=== PATIENT | female | born 1940 | race Caucasian/White ===

== ENCOUNTER → 2023-11-16 09:33 | Outpatient (REF) | payer OTHER, MEDICARE, SELFPAY ==
[2023-11-16 10:35] LABS: % Basophils 0.9 % (0-2); % Eosinophils 5.6 % (0-6); % Immature Granulocytes 0.4 % (0-0.5); % Monocytes 14.3 % (1.7-9.3); % Neutrophils 45.8 % (42.2-75.2); Absolute Eosinophils 0.3 10^3/uL (0-0.7); Absolute Lymphocytes 1.5 10^3/uL (1.2-3.4); Absolute Monocytes 0.6 10^3/uL (0.1-0.6); Absolute Neutrophils 2.1 10^3/uL (1.4-6.5); Hematocrit 31.9 % (37.0-47.0); Hemoglobin 10.2 g/dL (12.0-16.0); Mean Corpuscular Volume 90.6 fL (81.0-99.0); Mean Platelet Volume 10.1 fL (7.4-10.4); Nucleated Red Blood Cells % 0 %; Platelet Count 232 10^3/uL (130-400); Red Blood Cell Count 3.52 10^6/uL (4.20-5.40); Red Cell Dist. Width 14.7 % (11.5-14.5); White Blood Cell Count 4.5 10^3/uL (4.8-10.8)
[2023-11-16 10:50] LABS: ALT (SGPT) 11 U/L (0-35); AST (SGOT) 23 U/L (14-36); Albumin 3.2 g/dl (3.5-5.0); Alkaline Phosphatase 109 U/L (38-126); Blood Urea Nitrogen 23 mg/dl (7-17); Carbon Dioxide 27 mmol/L (22-30); Chloride 106 mmol/L (98-107); Glucose 87 mg/dl (70-99); HDL Cholesterol 65 mg/dl; LDL Cholesterol, Calculated 41 mg/dl; Magnesium 2.1 mg/dl (1.6-2.3); Potassium 4.4 mmol/L (3.5-5.1); Sodium 134 mmol/L (135-145); Total Bilirubin 0.5 mg/dl (0.2-1.3); Total Cholesterol 133 mg/dl (50-199); Total Protein 5.7 g/dl (6.3-8.2); Triglyceride 136 mg/dl (10-149); Very Low Density Lipoprotein 27 mg/dl (0-30); eGFR > 60.00
== END ==
LOC: OLABN 09:33
PROVIDERS: ATTENDING PHYSICIAN Student in an Organized Health Care Education/Training Program
DX: R60.0 Localized edema (principal); I10 Essential (primary) hypertension; D68.59 Other primary thrombophilia; N18.2 Chronic kidney disease, stage 2 (mild); E03.9 Hypothyroidism, unspecified; I48.0 Paroxysmal atrial fibrillation
CPT/HCPCS: 36415; 80053; 80061; 83735; 84443; 85025

== ENCOUNTER → 2023-12-01 09:30 | Outpatient (REF) | payer OTHER, MEDICARE, SELFPAY ==
[2023-12-01 11:54] LABS: TSH 9.49 uIU/ml (0.47-4.68)
== END ==
LOC: OLABN 09:30
PROVIDERS: ATTENDING PHYSICIAN Student in an Organized Health Care Education/Training Program
DX: E03.9 Hypothyroidism, unspecified (principal)
CPT/HCPCS: 36415; 84439; 84443

== ENCOUNTER → 2024-01-04 11:34 | Outpatient (REF) | payer MEDICARE, OTHER, SELFPAY ==
[2024-01-04 12:59] LABS: Free T4 1.67 ng/dl (0.78-2.19)
[2024-01-04 13:13] LABS: TSH 0.41 uIU/ml (0.47-4.68)
== END ==
LOC: OLABN 11:34
PROVIDERS: ATTENDING PHYSICIAN Student in an Organized Health Care Education/Training Program
DX: E03.9 Hypothyroidism, unspecified (principal)
CPT/HCPCS: 36415; 84439; 84443

== ENCOUNTER → 2024-01-19 11:15 | Outpatient (REF) | payer MEDICARE, OTHER, SELFPAY ==
[2024-01-19 12:26] LABS: Free T4 1.44 ng/dl (0.78-2.19)
[2024-01-19 12:40] LABS: TSH 1.47 uIU/ml (0.47-4.68)
== END ==
LOC: OLABN 11:15
PROVIDERS: ATTENDING PHYSICIAN Student in an Organized Health Care Education/Training Program
DX: E03.9 Hypothyroidism, unspecified (principal)
CPT/HCPCS: 36415; 84439; 84443

== ENCOUNTER 2024-03-23 20:15 | Inpatient (IN) | payer MEDICARE, OTHER, SELFPAY ==
[2024-03-23] VITALS (7 sets, daily range): BP systolic 109–156; BP diastolic 43–97; BMI 23.5
--- NOTE | 2024-03-23 15:45 | ED.GENMED ---
History of Present Illness
General
Chief Complaint: Weakness
Source: patient and ambulance crew
Exam Limitations: dementia
Time Seen by Provider: 03/23/24 15:17
History of Present Illness
History of Present Illness:
Patient is an 83-year-old female from [facility] who was sent from detention for increased weakness change in mental status. It is documented the patient did not eat today and has had nausea and gagging with dry heaves some diarrhea.
Apparently patient was transferring to the toilet became weak and fell on the floor which was witnessed and apparently staff lowered her to the supine position. Patient presents awake alert she answers certain questions but is confused. She has
obvious ecchymosis to her head abrasions and left shoulder.
Review of Systems
Review of Systems
Allergies reviewed?: Yes
All Other Systems: ROS reviewed and negative except as documented in HPI and ROS
Constitutional: Reports fatigue
EENT: Reports no symptoms
Respiratory: Reports no symptoms
ABD/GI: Reports nausea, diarrhea and other (Nausea dry heaves as per detention sheet)
: Reports no symptoms
Musculoskeletal: Reports no symptoms
Skin: Reports no symptoms
Neurological: Reports no symptoms
Hematologic/Lymphatic: Reports no symptoms
Psychiatric: Reports no symptoms
Phy Exam
General Physical Exam
General Presentation: no apparent distress
General age: appears stated age
General Skin: warm and dry
General Habitus: elderly
General Mental: alert
General Hydration: appears well hydrated
Cardiovascular Exam
Cardiovascular Exam: regular rate/rhythm, no murmur and normal peripheral pulses
Pulmonary Exam
Pulmonary Exam: lungs clear and no respiratory distress
Neurological Exam
Neurological Exam: alert and oriented x3
Musculoskeletal Exam
Musculoskeletal Exam: full ROM and other (Patient with bruising to left anterior forehead abrasion to left shoulder right shoulder mildly sore with abduction)
Skin Exam
Skin Exam: normal color and warm/dry
Psychiatric Exam
Psychiatric Exam: normal mood/affect
Course
Orders/Labs/Results
Orders:
Orders
03/23/24 15:23
COVID-19 Antigen Urgent
Source: Nasal Swab
Complete Blood Count/With Diff Urgent
Comprehensive Metabolic Panel Urgent
Urinalysis Reflex To Culture Urgent
Date Specimen was Collected: 03/23/24
Time Specimen was Collected: 15:17
Urine Microscopic Reflex Cult Urgent
Urine Culture Urgent
RUDDY Source: U
Specimen Description:
Date Specimen was Collected: 03/23/24
Time Specimen was Collected: 15:17
03/23/24 15:44
CT Head W/o Iv Contrast Urgent
Comment:
Reason For Exam: fall
Shoulder, Left, Trauma CR [CR Shoulder, Trauma - Left] Urgent
Comment:
Reason For Exam: trauma
Shoulder, Right, Trauma [CR Shoulder, Trauma - Right] Urgent
Comment:
Reason For Exam: trauma
03/23/24 15:49
Straight cath- Treatment ONCE
03/23/24 16:03
0.9% Sodium Chloride 500 ml [Nss] 500 ml IV BOLUS
03/23/24 16:58
Chest [CR Chest - 2 Views ] Urgent
Comment:
Reason For Exam: weakness
03/23/24 18:28
PT/INR [Prothrombin Time] Urgent
03/23/24 19:14
Lactic Acid Urgent
CefTRIAXone [Rocephin] 1,000 mg IV NOW STA
Abnormal Lab Results
03/23/24 03/23/24
15:23 18:28
WBC 16.4 H 10^3/uL
(4.8-10.8)
RBC 4.09 L 10^6/uL
(4.20-5.40)
Hgb 10.8 L g/dL
(12.0-16.0)
Hct 32.7 L %
(37.0-47.0)
MCV 80.0 L fL
(81.0-99.0)
MCH 26.4 L pg
(27.0-31.0)
RDW 17.9 H %
(11.5-14.5)
Abs Immat Gran (auto) 0.2 H 10^3/uL
(0-0.05)
Absolute Neuts (auto) 14.4 H 10^3/uL
(1.4-6.5)
Absolute Lymphs (auto) 0.7 L 10^3/uL
(1.2-3.4)
Absolute Monos (auto) 0.9 H 10^3/uL
(0.1-0.6)
Immature Gran % 1.2 H %
(0-0.5)
Neutrophils % 87.7 H %
(42.2-75.2)
Lymphocytes % 4.4 L %
(20.5-51.1)
PT 35.3 H Sec
(11.4-14.6)
Sodium 131 L mmol/L
(135-145)
BUN 42 H mg/dl
(7-17)
Creatinine 2.0 H mg/dL
(0.6-1.0)
Glucose 109 H mg/dl
(70-99)
Total Bilirubin 1.9 H mg/dl
(0.2-1.3)
Alkaline Phosphatase 127 H U/L
(38-126)
Ur Occult Blood Reflex 4+ A
(Negative)
Leukocyte Esterase Rfl 2+ A
(Negative)
Urine RBC 3-6 A /HPF
(0-2)
Urine WBC (Reflex) 70-80 A /HPF
(0-5)
Urine Bacteria (Reflex) Many A
(Negative)
Urine Albumin (Reflex) 1+ A
(Neg - Trace)
03/23/24 15:23
03/23/24 15:23
Vital Signs
Initial and Last Documented VS:
Initial Vital Signs
Pulse Resp
70 35
03/23/24 15:17 03/23/24 15:17
Last Documented Vital Signs
Temp Pulse Resp BP Pulse Ox
97.5 F 71 31 137/74 99
03/23/24 18:17 03/23/24 19:00 03/23/24 19:00 03/23/24 19:00 03/23/24 18:17
MDM/Problems Addressed
Differential Diagnosis Includes:
Not limited to weakness, intracranial hemorrhage, UTI, dehydration
MDM/Problems Addressed:
Patient is an 83-year-old female sent by detention for weakness, fall. Patient arrives awake alert minimally confused. Patient has a history of frequent UTIs as per family at bedside. Patient has small amount of bruising to left forehead she
is on Coumadin INR is 3.46. CT head done negative. Patient has some abrasions to shoulders shoulder x-ray negative. Patient with minimally elevated white count at 16,000 creatinine bumped up to 2 which is new from October 2023 urine done straight
cath positive UTI will admit for weakness UTI dehydration renal insufficiency
*Radiology
Radiology exam reviewed: radiology read reviewed
*Pulse Oximetry
Patient hypoxic: no
*Critical Care Note
Total Time (30-74mins, 75-104mins- exclusive of procedures): Not Applicable
ED Attending Note
-
Portions of this chart may have been created with voice recognition software.� Occasional wrong word or��sound alike� substitutions may have occurred due to the inherent limitations of voice recognition software.
Discharge Plan
Departure
Patient Disposition: Admit
Date of Disposition: 03/23/24
Time of Disposition: 19:21
Admit to doctor: hospitalist
Presentation/result/management discussed w/ accepting MD/DO: Hospitalist
Patient with high blood pressure during this ER visit?: Yes
Condition: Fair
Covid-19: Negative COVID-19
Discharge Problem:
Acute UTI, Weakness, Acute renal insufficiency
Prescriptions:
No Action
lidocaine 4 % Adhesive Patch,Medicated
1 patch TOPICAL DAILY
cetirizine 5 mg Tablet
5 mg PO DAILY@2029
sotalol 80 mg Tablet
40 mg PO DAILY
warfarin [Jantoven] 2.5 mg Tablet
2.5 mg PO DAILY@1829
Patient Comments:
03/23/24: dosage for 03/17/24-03/24/24
levothyroxine 150 mcg Tablet
150 mcg PO DAILY
losartan 25 mg Tablet
25 mg PO DAILY@1829
furosemide 20 mg Tablet
20 mg PO DAILY
fluticasone propion-salmeterol [Wixela Inhub] 100-50 mcg/dose Blister With Device
1 inh INHALATION R BID
Spiriva Respimat 2.5 mcg/actuation Mist
2 puff INHALATION R DAILY
PreserVision AREDS-2 250-90-40-1 mg Capsule
1 tab PO BID
carboxymethylcellulose sodium 1 % Drops
1 drp RIGHT EYE BID
acetaminophen 325 mg Tablet
650 mg PO Q4HPRN MDD 3000 mg PRN (Reason: mild pain/fever >100.4)
albuterol sulfate 2.5 mg /3 mL (0.083 %) Solution For Nebulization
2.5 mg INHALATION R Q4HPRN PRN (Reason: SOB)
magnesium hydroxide [Milk of Magnesia] 400 mg/5 mL Suspension
30 ml PO HSPRN PRN (Reason: consipation)
benzonatate 100 mg Capsule
100 mg PO Q8HPRN PRN (Reason: cough)
bisacodyl 10 mg Suppository
10 mg [place] DAILYPRN PRN (Reason: day 3 no bm, mom ineffective)
sennosides-docusate sodium 8.6-50 mg Tablet
2 tab-cap PO DAILY
dextromethorphan-guaifenesin 20-200 mg/10 mL Liquid In Packet
10 ml PO Q6HPRN PRN (Reason: cough)
Referrals:
Josiah Rodriguez DO [Family Provider] -
Interventions
Interventions:
*Risk Screen - Suicide Last Done: 03/23/24 15:40
*General Assessment Last Done: 03/23/24 15:40
*Neglect/Abuse Screening Last Done: 03/23/24 15:40
ED- Fall Risk Assessment Last Done: 03/23/24 15:40
*ED COVID-19 Vaccine History Last Done: 03/23/24 15:40
ED- Cardiac Assessment Last Done: 03/23/24 15:40
ED- Neurological Assessment Last Done: 03/23/24 15:40
ED- Pulmonary Assessment Last Done: 03/23/24 15:40
Discharge Date and Time
Print Language: GEORGIAN
[2024-03-23 15:46] LABS: % Basophils 0.5 % (0-2); % Eosinophils 0.7 % (0-6); % Immature Granulocytes 1.2 % (0-0.5); % Lymphocytes 4.4 % (20.5-51.1); % Monocytes 5.5 % (1.7-9.3); % Neutrophils 87.7 % (42.2-75.2); Absolute Basophils 0.1 10^3/uL (0-0.2); Absolute Eosinophils 0.1 10^3/uL (0-0.7); Absolute Immature Granulocytes 0.2 10^3/uL (0-0.05); Absolute Lymphocytes 0.7 10^3/uL (1.2-3.4); Absolute Monocytes 0.9 10^3/uL (0.1-0.6); Absolute Neutrophils 14.4 10^3/uL (1.4-6.5); Hematocrit 32.7 % (37.0-47.0); Hemoglobin 10.8 g/dL (12.0-16.0); Mean Corpuscular Hgb 26.4 pg (27.0-31.0); Mean Platelet Volume 10.2 fL (7.4-10.4); Nucleated Red Blood Cells % 0 %; Platelet Count 189 10^3/uL (130-400); Red Blood Cell Count 4.09 10^6/uL (4.20-5.40); Red Cell Dist. Width 17.9 % (11.5-14.5); White Blood Cell Count 16.4 10^3/uL (4.8-10.8)
[2024-03-23 15:49] LABS: COVID-19 Antigen Negative (Negative)
[2024-03-23 16:01] LABS: ALT (SGPT) 13 U/L (0-35); AST (SGOT) 28 U/L (14-36); Albumin 3.5 g/dl (3.5-5.0); Alkaline Phosphatase 127 U/L (38-126); Blood Urea Nitrogen 42 mg/dl (7-17); Calcium 8.7 mg/dl (8.4-10.2); Carbon Dioxide 24 mmol/L (22-30); Chloride 99 mmol/L (98-107); Glucose 109 mg/dl (70-99); Potassium 4.4 mmol/L (3.5-5.1); Sodium 131 mmol/L (135-145); Total Bilirubin 1.9 mg/dl (0.2-1.3); Total Protein 6.3 g/dl (6.3-8.2); eGFR 24.03
[2024-03-23 18:20] LABS: Urine Albumin 1+ (Neg - Trace); Urine Bilirubin Negative (Negative); Urine Character Slightly Cloudy (Clear); Urine Color Yellow; Urine Glucose Negative (Negative); Urine Ketone Negative (Negative); Urine Leukocyte 2+ (Negative); Urine Nitrite Negative (Negative); Urine Occult Blood 4+ (Negative); Urine Specific Gravity 1.015 (<1.030); Urine Urobilinogen Negative (Neg - 1+)
[2024-03-23] MEDS: NSS 500 IV (18:20)
[2024-03-23 18:45] LABS: INR 3.46; PT 35.3 Sec (11.4-14.6)
[2024-03-23 19:07] LABS: Urine Bacteria Many (Negative); Urine White Cell 70-80 /HPF (0-5)
[2024-03-23] MEDS: ROCEPHIN 1000 MG IV (19:26)
[2024-03-23 19:48] LABS: Lactic Acid 2.2 mmol/L (0.7-2.0)
--- NOTE | 2024-03-23 19:57 | HPS.HSE ---
Family Physician
-
Family Physician: Josiah Rodriguez,
Chief Complaint
-
weakness, confusion
History of Present Illness
83-year-old female past medical history of paroxysmal atrial fibrillation, with pacemaker, hypertension, anemia, COPD, breast cancer status post bilateral mastectomy, hypothyroidism, presenting from [facility] for increased weakness and change
in mental status. It was documented the patient did not eat today and has had nausea and gagging/dry heaving with some diarrhea over the past few days. No diarrhea today. Apparently while patient was transferring to the toilet she became weak and
fell onto the floor which was witnessed and apparently staff lowered her to the supine position. Patient is awake and alert and answers certain questions but is confused. She has ecchymosis on her head and left shoulder. No urinary symptoms. No
fevers or chills.
She has had cough for the past several weeks and was treated with steroids and nebulizers with improvement in cough although she still has slight cough. No shortness of breath. No chest pain.
She is a former smoker. Denies alcohol use.
Medical History
Past Medical History
Past Medical History: Reports Other (paroxysmal atrial fibrillation, with pacemaker, hypertension, anemia, COPD, breast cancer status post bilateral mastectomy, hypothyroidism)
Past Surgical History: Reports Other (bilteral mastectomy )
Social History
Tobacco: Former Smoker
Alcohol: Former
Drug: None
Family History
Family History: Not pertinent
Allergies / Home Medications
Allergies reflects when Allergies were last updated in [employer].
Home Medications with original date entered in [employer]
Allergy/Medication List:
Allergies
Allergy/AdvReac Type Severity Reaction Status Date / Time
ramipril Allergy Mild Rash Verified 03/23/24 16:11
Home Medications
acetaminophen 325 mg tablet 650 mg PO Q4HPRN PRN mild pain/fever >100.4 03/23/24
albuterol sulfate 2.5 mg/3 mL (0.083 %) solution for nebulization 2.5 mg inhalation R Q4HPRN PRN SOB 03/23/24
benzonatate 100 mg capsule 100 mg PO Q8HPRN PRN cough 03/23/24
bisacodyl 10 mg rectal suppository 10 mg [place] DAILYPRN PRN day 3 no bm, mom ineffective 03/23/24
carboxymethylcellulose sodium 1 % eye drops 1 drp RIGHT EYE BID 03/23/24
cetirizine 5 mg tablet 5 mg PO DAILY@202903/23/24
dextromethorphan-guaifenesin 20 mg-200 mg/10 mL oral liquid in packet 10 ml PO Q6HPRN PRN cough 03/23/24
fluticasone 100 mcg-salmeterol 50 mcg/dose blistr powdr for inhalation (Wixela Inhub) 1 inh inhalation R BID 03/23/24
furosemide 20 mg tablet 20 mg PO DAILY 03/23/24
levothyroxine 150 mcg tablet 150 mcg PO DAILY 03/23/24
lidocaine 4 % topical patch 1 patch topical DAILY right shoulder 03/23/24
losartan 25 mg tablet 25 mg PO DAILY@182903/23/24
magnesium hydroxide 400 mg/5 mL oral suspension (Milk of Magnesia) 30 ml PO HSPRN PRN consipation 03/23/24
sennosides 8.6 mg-docusate sodium 50 mg tablet 2 tab-cap PO DAILY 03/23/24
sotalol 80 mg tablet 40 mg PO DAILY 03/23/24
tiotropium bromide 2.5 mcg/actuation mist for inhalation (Spiriva Respimat) 2 puff inhalation R DAILY 03/23/24
vit C 250 mg-vit E 90 mg-zinc 40 mg-copper 1 [id number] capsule (PreserVision AREDS-2) 1 tab PO BID 03/23/24
warfarin 2.5 mg tablet (Jantoven) 2.5 mg PO DAILY@182903/23/24
Review of Systems
-
History Source: Patient
A 12 point ROS was completed and negative except as noted: Yes
Constitutional: Reports No Symptoms
EENT: Reports No Symptoms
Respiratory: Reports No Symptoms
Cardiac: Reports No Symptoms
Abdomen/GI: Reports See HPI
: Reports No Symptoms
Musculoskeletal: Reports No Symptoms
Skin: Reports No Symptoms
Neurological: Reports No Symptoms
Endocrine: Reports No Symptoms
Hematologic/Lymphatic: Reports No Symptoms
Psych: Reports No Symptoms
Physical Exam
Vital Signs
Vital Signs
Temp Pulse Resp BP Pulse Ox
97.5 F 71 31 137/74 99
03/23/24 18:17 03/23/24 19:00 03/23/24 19:00 03/23/24 19:00 03/23/24 18:17
Physical Exam
General: Well Developed, Well Nourished and No Apparent Distress
HEENT: NormoCephalic, Moist mucous membranes and Atraumatic
Respiratory: Clear
Cardiac: S1/S2 and Regular Rhythm; No Murmur or Rub
GI: Soft, Non Distended, Normal Bowel Sounds and Tender; No Organomegaly
Rectal: Deferred by Provider
Musculoskeletal: No Clubbing, No Cyanosis and No Edema
Skin: No Rash
Neuro: Nonfocal/grossly intact
Laboratory Results
-
03/23/24 15:23
03/23/24 15:23
Laboratory Results
PT 35.3 Sec (11.4-14.6) H 03/23/24 18:28
INR 3.46 03/23/24 18:28
Lactic Acid 2.2 mmol/L (0.7-2.0) H 03/23/24 19:32
Total Bilirubin 1.9 mg/dl (0.2-1.3) H 03/23/24 15:23
AST 28 U/L (14-36) 03/23/24 15:23
ALT 13 U/L (0-35) 03/23/24 15:23
Alkaline Phosphatase 127 U/L (38-126) H 03/23/24 15:23
Data Reviewed
-
Lab Data: Labs Reviewed by me
Old Records: Reviewed
Impression/Plan
-
IMPRESSION:
PLAN:
# Metabolic encephalopathy secondary to urinary tract infection
-UA shows 70-80 WBC,
-Urine culture
-Chest x-ray unremarkable, COVID-negative
-Ceftriaxone
# Acute kidney injury on reported CKD
-IV fluids
-Hold Lasix
-Hold losartan
# Forehead/shoulder ecchymoses from fall
-Shoulder x-rays negative
-CT head negative
# Diarrhea for past few days
-No diarrhea today
-Check stool studies if persistent
-Hold senna
Paroxysmal atrial fibrillation with pacemaker
-Continue Coumadin
-INR 3.46, check daily
-Continue sotalol
Chronic anemia
-Stable
COPD
-Continue inhalers
Chronic lower extremity edema
-Hold Lasix
Former smoker
Essential hypertension
-Hold losartan
Hypothyroidism
-Continue levothyroxine
Breast cancer status post bilateral mastectomy
DNR/DNI
DVT prophylaxis�Coumadin
Regular diet
[2024-03-23] MEDS: TYLENOL 650 MG PO (21:18)
[2024-03-23] MEDS: ZYRTEC 5 MG PO (23:30)
[2024-03-23] MEDS: REFRESH CELLUVISC GEL 1 DROPS RIGHT EYE (23:30)
[2024-03-23] MEDS: OCUVITE SOFTGEL 1 CAP PO (23:30)
[2024-03-23] MEDS: NSS 1000 IV (23:31)
[2024-03-23] MEDS: ADVAIR HFA 45/21 MCG INHALER INH (23:52)
[2024-03-24] VITALS (12 sets, daily range): BP systolic 97–149; BP diastolic 43–70; PULSE 70; BMI 23.9
[2024-03-24 03:53] LABS: Lactic Acid 1.1 mmol/L (0.7-2.0)
[2024-03-24 06:04] LABS: INR 3.72; PT 37.4 Sec (11.4-14.6)
[2024-03-24 06:21] LABS: Hematocrit 34.7 % (37.0-47.0); Hemoglobin 11.6 g/dL (12.0-16.0); Mean Corp Hgb Conc. 33.4 g/dL (33.0-37.0); Mean Corpuscular Hgb 26.5 pg (27.0-31.0); Mean Corpuscular Volume 79.2 fL (81.0-99.0); Mean Platelet Volume 10.2 fL (7.4-10.4); Platelet Count 163 10^3/uL (130-400); Red Blood Cell Count 4.38 10^6/uL (4.20-5.40); Red Cell Dist. Width 17.8 % (11.5-14.5); White Blood Cell Count 13.5 10^3/uL (4.8-10.8)
[2024-03-24 06:53] LABS: ALT (SGPT) 25 U/L (0-35); AST (SGOT) 43 U/L (14-36); Albumin 3.3 g/dl (3.5-5.0); Alkaline Phosphatase 164 U/L (38-126); Blood Urea Nitrogen 47 mg/dl (7-17); Calcium 8.7 mg/dl (8.4-10.2); Carbon Dioxide 23 mmol/L (22-30); Chloride 102 mmol/L (98-107); Estimated Creatinine Clearance 22 ml/min; Glucose 105 mg/dl (70-99); Potassium 4.4 mmol/L (3.5-5.1); Sodium 135 mmol/L (135-145); Total Bilirubin 1.6 mg/dl (0.2-1.3); Total Protein 5.9 g/dl (6.3-8.2); eGFR 24.03
[2024-03-24] MEDS: ADVAIR HFA 45/21 MCG INHALER 2 PUFF INH ×2 (07:26→19:33)
[2024-03-24] MEDS: SPIRIVA RESPIMAT 2.5 MCG 2 PUFF INH (07:26)
[2024-03-24 08:19] LABS: Absolute Neutrophils -Man Diff 12.1 10^3/uL (1.4-6.5); Band Neutrophils 10 % (0-3); Lymphocytes 6 % (20-51); Monocytes 4 % (2-9); Normal RBC Morphology Yes; Platelets Checked Yes; Segmented Neutrophils 80 % (42-75)
[2024-03-24 08:20] LABS: Total Cells Counted 100
[2024-03-24] MEDS: SYNTHROID 150 MCG PO (09:00)
[2024-03-24] MEDS: REFRESH CELLUVISC GEL 1 DROPS RIGHT EYE ×2 (09:00→21:50)
[2024-03-24] MEDS: OCUVITE SOFTGEL 1 CAP PO ×2 (09:00→21:50)
[2024-03-24] MEDS: BETAPACE 40 MG PO (09:01)
[2024-03-24] MEDS: LIDOCAINE 4% PATCH 1 PATCH TOPICAL (09:03)
--- NOTE | 2024-03-24 10:41 | W.PN.HOSP.TC ---
Today's Communication/Plan
-
Urine CX
Abdomen X ray
PT OT
Assessment / Plan
Assessment / Plan
78-year-old female with weakness and confusion. She had a cough for the past several weeks was treated with steroids and nebulizers with improvement. Patient states that she fell yesterday in the bathroom. Did not lose consciousness. She also
has right shoulder problems for which she got injection 2 weeks ago.
On examination abrasion on the face and right shoulder
Cardiovascular system is most appreciated
Chest clear to auscultation
Abdomen soft and nontender
No lower extremity edema
Neuroexam-able to move all extremities no facial droop
# Metabolic encephalopathy-TME likely secondary to UTI
Continue ceftriaxone
Await urine cultures
Chest x-ray unremarkable COVID is negative
# Acute kidney injury
Hold Lasix and losartan
Continue with fluids
Follow creatinine
# Forehead and shoulder ecchymosis
From fall
CT of the head is negative
X-ray of the shoulder negative
# Diarrhea for the past few days
If possible check stool studies
Check x-ray of the abdomen to rule out constipation
# Hyponatremia-likely hypovolemic-better
# Lactic acidosis resolved
# Paroxysmal atrial fibrillation
Pacemaker
Continue Coumadin per INR
Presently coagulopathy secondary to Coumadin
Continue sotalol
# Essential hypertension-hold losartan
# Chronic anemia
# COPD-continue albuterol as needed Wixela or equivalent, Spiriva
# Chronic lower extremity edema-hold Lasix
# Hypothyroidism-continue levothyroxine
# History breast cancer status post bilateral mastectomy
# DVT prophylaxis-elevated INR
# DNR per pt preference
Discussed with nursing
Called brother Patient gave me number - Nestor [phone]- twice- faulty connection.
Time spent over 50 min
Anticipated Discharge: Within 24 hours
Subjective/Interval History
-
Date of Service: March 24, 2024
Objective Data
-
Labs:
Laboratory Results
03/24/24
05:42
WBC 13.5 H
Hgb 11.6 L
Hct 34.7 L
Plt Count 163
PT 37.4 H
INR 3.72
Sodium 135
Potassium 4.4
Chloride 102
Carbon Dioxide 23
BUN 47 H
Creatinine 2.0 H
Glucose 105 H
Calcium 8.7
Total Bilirubin 1.6 H
AST 43 H
ALT 25
Alkaline Phosphatase 164 H
Vital Signs:
Vital Signs
Temp Pulse Resp BP Pulse Ox
98.7 F 74 29 132/55 95
03/24/24 09:57 03/24/24 09:45 03/24/24 09:45 03/24/24 09:02 03/24/24 07:29
[2024-03-24] MEDS: NSS IV (11:09)
[2024-03-24] MEDS: TYLENOL 650 MG PO (11:24)
[2024-03-24] MEDS: NSS 1000 IV ×2 (11:32→23:18)
--- NOTE | 2024-03-24 14:48 | CM ---
CM reviewed medical records. PARI spoke with Harley at [facility]. Harley confirmed that patient is a LTC resident at [facility]. Patient is currently MA pending and they will accept back on discharge. PARI sent referral information to [facility]
[place] for update and possible skilled time.
[facility]
Report [phone]

PLAN: Return to [facility] LT.
--- NOTE | 2024-03-24 16:08 | PN.CDI ---
CDI
- -
CDI:
Physician Documentation Request
Admit Date: 03/23/24 20:15
Dear Doctor hTeresa,
Please review the following and provide your response in the progress notes.
Clinical Indicators:
Pt admitted with metabolic encephalopathy, UTI, and acute kidney injury.
Selected Entries
03/23/24
21:14 03/24/24
13:30
Temp 103.4 F H 100.4
Resp Rate 27 30
Laboratory Tests
03/23/24 03/23/24 03/24/24
15:23 19:32 05:42
WBC 16.4 H 13.5 H
Lactic Acid 2.2 H
Please clarify which of the following most accurately describes the status of the patient's infection:
Sepsis
- Systemic manifestations of infection, with 2 or more SIRS criteria which include:
- Fever >100.4 degrees F or hypothermia < 96.8 degrees F
- Leukocytosis - WBC > 12,000 or leukopenia - WBC < 4,000 or > 10% bands
- Tachycardia > 90 beats per minute
- Tachypnea - RR > 20 breaths per minute or PaCO2 , 32mmHg
Urinary tract infection only
Other
Use of terms such as suspected, likely, concern for, or probable (associated with a specific diagnosis that is being evaluated, monitored, or treated as if it exists) are acceptable and can be coded in the inpatient setting, when documented at the
time of discharge.
Thank you,
Kelly Fernandes RN, BSN
CDI Specialist
Available via [place] [employer]
Please use your independent medical judgment in providing your response.
[2024-03-24] MEDS: ROBITUSSIN PO (16:29)
[2024-03-24] MEDS: ROBITUSSIN 200 MG PO ×2 (18:05→21:50)
[2024-03-24] MEDS: ROCEPHIN 1000 MG IV (21:22)
[2024-03-24] MEDS: STERILE WATER FOR INJECTION 10 ML IV (21:22)
[2024-03-24] MEDS: ZYRTEC 5 MG PO (21:51)
[2024-03-25] VITALS (7 sets, daily range): BP systolic 111–144; BP diastolic 52–66
[2024-03-25] MEDS: SYNTHROID 150 MCG PO (04:53)
[2024-03-25] MEDS: TYLENOL 650 MG PO (05:07)
[2024-03-25] MEDS: SPIRIVA RESPIMAT 2.5 MCG 2 PUFF INH (08:24)
[2024-03-25] MEDS: ADVAIR HFA 45/21 MCG INHALER 2 PUFF INH ×2 (08:24→20:25)
--- NOTE | 2024-03-25 09:21 | PN.CDI ---
Addendum entered and electronically signed by Ashlee Cardenas MD 04/05/24 13:36:
no change in documentation. TY
Original Note:
CDI
- -
CDI:
Physician Documentation Request
Admit Date: 03/23/24 20:15
Dear Doctor Theresa,
Please review the following and provide your response in the progress notes.
Clinical Indicators:
Pt admitted with metabolic encephalopathy, UTI, and acute kidney injury.
Selected Entries
03/23/24
21:14 03/24/24
13:30
Temp 103.4 F H 100.4
Resp Rate 27 30
Laboratory Tests
03/23/24 03/23/24 03/24/24
15:23 19:32 05:42
WBC 16.4 H 13.5 H
Lactic Acid 2.2 H
Please clarify which of the following most accurately describes the status of the patient's infection:
Sepsis due to UTI
- Systemic manifestations of infection, with 2 or more SIRS criteria which include:
- Fever >100.4 degrees F or hypothermia < 96.8 degrees F
- Leukocytosis - WBC > 12,000 or leukopenia - WBC < 4,000 or > 10% bands
- Tachycardia > 90 beats per minute
- Tachypnea - RR > 20 breaths per minute or PaCO2 , 32mmHg
Urinary tract infection only
Other
Use of terms such as suspected, likely, concern for, or probable (associated with a specific diagnosis that is being evaluated, monitored, or treated as if it exists) are acceptable and can be coded in the inpatient setting, when documented at the
time of discharge.
Thank you,
Kelly Fernandes RN, BSN
CDI Specialist
Available via [employer]
Please use your independent medical judgment in providing your response.
[2024-03-25] MEDS: BETAPACE 40 MG PO (10:01)
[2024-03-25] MEDS: OCUVITE SOFTGEL 1 CAP PO ×2 (10:01→20:35)
[2024-03-25] MEDS: REFRESH CELLUVISC GEL 1 DROPS RIGHT EYE ×2 (10:01→20:35)
[2024-03-25] MEDS: ROBITUSSIN 200 MG PO ×4 (10:02→20:35)
[2024-03-25] MEDS: LIDOCAINE 4% PATCH 1 PATCH TOPICAL (10:03)
[2024-03-25 13:58] LABS: Hematocrit 35.7 % (37.0-47.0); Hemoglobin 11.4 g/dL (12.0-16.0); Mean Corp Hgb Conc. 31.9 g/dL (33.0-37.0); Mean Corpuscular Hgb 26.8 pg (27.0-31.0); Mean Corpuscular Volume 83.8 fL (81.0-99.0); Mean Platelet Volume 11.2 fL (7.4-10.4); Platelet Count 171 10^3/uL (130-400); Red Blood Cell Count 4.26 10^6/uL (4.20-5.40); Red Cell Dist. Width 17.9 % (11.5-14.5); White Blood Cell Count 10.6 10^3/uL (4.8-10.8)
[2024-03-25 14:22] LABS: Blood Urea Nitrogen 45 mg/dl (7-17); Calcium 8.5 mg/dl (8.4-10.2); Carbon Dioxide 21 mmol/L (22-30); Chloride 106 mmol/L (98-107); Estimated Creatinine Clearance 26 ml/min; Glucose 101 mg/dl (70-99); Potassium 4.5 mmol/L (3.5-5.1); Sodium 134 mmol/L (135-145); eGFR 29.21
--- NOTE | 2024-03-25 14:58 | W.PN.HOSP.TC ---
Today's Communication/Plan
-
Continue IV fluids
Continue ceftriaxone
PT OT eval
Hold Lasix and losartan
Compression therapy lower extremity
Assessment / Plan
Assessment / Plan
78-year-old female with weakness and confusion. She had a cough for the past several weeks was treated with steroids and nebulizers with improvement. Patient states that she fell yesterday in the bathroom. Did not lose consciousness. She also
has right shoulder problems for which she got injection 2 weeks ago.
On examination abrasion on the face and right shoulder
Cardiovascular system is most appreciated
Chest clear to auscultation
Abdomen soft and nontender
mild lower extremity edema
Neuro exam-able to move all extremities no facial droop
# Metabolic encephalopathy-TME likely secondary to UTI
Back to baseline
Continue ceftriaxone
Chest x-ray unremarkable COVID is negative
# Acute kidney injury
Hold Lasix and losartan
Continue with fluids
Follow creatinine-better
# Forehead and shoulder ecchymosis
From fall
CT of the head is negative
X-ray of the shoulder negative
# Diarrhea for the past few days
No diarrhea now
# Hyponatremia-likely hypovolemic-better
# Lactic acidosis resolved
# Paroxysmal atrial fibrillation
Pacemaker
Continue Coumadin per INR
Presently coagulopathy secondary to Coumadin
Continue sotalol
# Essential hypertension-hold losartan
# Chronic anemia
# COPD-continue albuterol as needed Wixela or equivalent, Spiriva
# Chronic lower extremity edema-hold Lasix
# Hypothyroidism-continue levothyroxine
# History breast cancer status post bilateral mastectomy
# DVT prophylaxis-elevated INR
# DNR per pt preference
Discussed with nursing
B/W brother - Nestor [phone]- at bed side today
D/W RN
Anticipated Discharge: Within 24 hours
Subjective/Interval History
-
Date of Service: March 25, 2024
Objective Data
-
Labs:
Laboratory Results
03/25/24
13:24
WBC 10.6
Hgb 11.4 L
Hct 35.7 L
Plt Count 171
Sodium 134 L
Potassium 4.5
Chloride 106
Carbon Dioxide 21 L
BUN 45 H
Creatinine 1.7 H
Glucose 101 H
Calcium 8.5
Vital Signs:
Vital Signs
Temp Pulse Resp BP Pulse Ox
97.6 F 72 18 116/55 98
03/25/24 11:25 03/25/24 11:25 03/25/24 11:25 03/25/24 11:25 03/25/24 11:25
I&O
03/24/24 03/25/24 03/26/24
06:59 06:59 06:59
Intake Total 240 / 240
Balance 240 / 240
[2024-03-25] MEDS: NSS 1000 IV (15:11)
--- NOTE | 2024-03-25 15:48 | CM ---
Chart reviewed and patient to return to [facility] when stable. Patient is a LTC resident at facility per previous telephonic case manager notes.
Plan; [facility]
Report [phone]
[2024-03-25] MEDS: STERILE WATER FOR INJECTION 10 ML IV (20:35)
[2024-03-25] MEDS: ZYRTEC 5 MG PO (20:35)
[2024-03-25] MEDS: ROCEPHIN 1000 MG IV (20:35)
[2024-03-26 03:45] VITALS: BP 143/66
[2024-03-26] MEDS: NSS 1000 IV ×2 (05:44→16:40)
[2024-03-26] MEDS: SYNTHROID 150 MCG PO (05:44)
[2024-03-26 06:00] VITALS: BMI 24.3
[2024-03-26] MEDS: SPIRIVA RESPIMAT 2.5 MCG 2 PUFF INH (07:18)
[2024-03-26] MEDS: ADVAIR HFA 45/21 MCG INHALER 2 PUFF INH ×2 (07:18→19:54)
[2024-03-26 07:55] VITALS: BP 148/72
[2024-03-26] MEDS: OCUVITE SOFTGEL 1 CAP PO ×2 (08:34→20:55)
[2024-03-26] MEDS: ROBITUSSIN 200 MG PO ×4 (08:34→20:56)
[2024-03-26] MEDS: BETAPACE 40 MG PO (08:34)
[2024-03-26] MEDS: REFRESH CELLUVISC GEL 1 DROPS RIGHT EYE ×2 (08:34→20:55)
[2024-03-26] MEDS: LIDOCAINE 4% PATCH 1 PATCH TOPICAL (08:35)
[2024-03-26 09:32] LABS: Blood Urea Nitrogen 37 mg/dl (7-17); Calcium 8.2 mg/dl (8.4-10.2); Carbon Dioxide 20 mmol/L (22-30); Chloride 111 mmol/L (98-107); Estimated Creatinine Clearance 32 ml/min; Glucose 83 mg/dl (70-99); Sodium 135 mmol/L (135-145); eGFR 36.87
[2024-03-26 11:30] VITALS: BP 139/68
--- NOTE | 2024-03-26 14:54 | W.PN.HOSP.TC ---
Today's Communication/Plan
-
INR ordered
BMP in am
IVF
Assessment / Plan
Assessment / Plan
78-year-old female with weakness and confusion. She had a cough for the past several weeks was treated with steroids and nebulizers with improvement. Patient states that she fell yesterday in the bathroom. Did not lose consciousness. She also
has right shoulder problems for which she got injection 2 weeks ago.
On examination abrasion on the face and right shoulder
Cardiovascular system is most appreciated
Chest clear to auscultation
Abdomen soft and nontender
mild lower extremity edema
Neuro exam-able to move all extremities no facial droop
# Metabolic encephalopathy-TME likely secondary to UTI
Back to baseline
Continue ceftriaxone
Chest x-ray unremarkable COVID is negative
# Acute kidney injury
Hold Lasix and losartan
Continue with fluids
Follow creatinine-better
# Forehead and shoulder ecchymosis
From fall
CT of the head is negative
X-ray of the shoulder negative
# Diarrhea for the past few days
No diarrhea now
# Hyponatremia-likely hypovolemic-better
# Lactic acidosis resolved
# Paroxysmal atrial fibrillation
Pacemaker
Continue Coumadin per INR
Presently coagulopathy secondary to Coumadin
Continue sotalol
# Essential hypertension-hold losartan
# Chronic anemia
# COPD-continue albuterol as needed Wixela or equivalent, Spiriva
# Chronic lower extremity edema-hold Lasix
# Hypothyroidism-continue levothyroxine
# History breast cancer status post bilateral mastectomy
# DVT prophylaxis-elevated INR
# DNR per pt preference
Discussed with nursing
Nestor [phone]
D/W RN
Anticipated Discharge: Within 24 hours
Subjective/Interval History
-
Date of Service: March 26, 2024
Objective Data
-
Labs:
Laboratory Results
03/26/24
08:10
Sodium 135
Potassium 4.0
Chloride 111 H
Carbon Dioxide 20 L
BUN 37 H
Creatinine 1.4 H
Glucose 83
Calcium 8.2 L
Vital Signs:
Vital Signs
Temp Pulse Resp BP Pulse Ox
98.1 F 70 20 139/68 96
03/26/24 11:30 03/26/24 11:30 03/26/24 11:30 03/26/24 11:30 03/26/24 11:30
I&O
03/25/24 03/26/24 03/27/24
06:59 06:59 06:59
Intake Total 240 / 240 240 / 1040 800 / 800
Balance 240 / 240 240 / 1040 800 / 800
[2024-03-26 15:30] VITALS: BP 152/82
[2024-03-26 15:34] LABS: INR 3.59; PT 35.8 Sec (11.4-14.6)
[2024-03-26 19:48] VITALS: BP 149/78
[2024-03-26] MEDS: STERILE WATER FOR INJECTION 10 ML IV (20:55)
[2024-03-26] MEDS: ROCEPHIN 1000 MG IV (20:55)
[2024-03-26] MEDS: ZYRTEC 5 MG PO (20:56)
[2024-03-26 23:55] VITALS: BP 156/77
[2024-03-27 03:55] VITALS: BP 159/77
[2024-03-27] MEDS: SYNTHROID 150 MCG PO (05:09)
[2024-03-27] MEDS: NSS 1000 IV (05:09)
[2024-03-27 06:00] VITALS: BMI 24.8
--- NOTE | 2024-03-27 06:00 | PTCARENOTE ---
Pt respirations noted throughout night 30s-40s. Pulse ox-96% on RA. Pt states she feels fine- and not SOB. Contacted [employer]- will continue to monitor
[2024-03-27] MEDS: ADVAIR HFA 45/21 MCG INHALER 2 PUFF INH ×2 (07:25→19:59)
[2024-03-27] MEDS: SPIRIVA RESPIMAT 2.5 MCG 2 PUFF INH (07:25)
[2024-03-27 07:55] VITALS: BP 169/84
[2024-03-27] MEDS: ROBITUSSIN 200 MG PO ×4 (08:07→21:24)
[2024-03-27] MEDS: OCUVITE SOFTGEL 1 CAP PO ×2 (08:07→21:21)
[2024-03-27] MEDS: REFRESH CELLUVISC GEL 1 DROPS RIGHT EYE ×2 (08:07→21:21)
[2024-03-27] MEDS: LIDOCAINE 4% PATCH 1 PATCH TOPICAL (08:08)
[2024-03-27] MEDS: BETAPACE 40 MG PO (08:08)
[2024-03-27 09:27] LABS: Blood Urea Nitrogen 33 mg/dl (7-17); Calcium 8.4 mg/dl (8.4-10.2); Carbon Dioxide 18 mmol/L (22-30); Chloride 112 mmol/L (98-107); Estimated Creatinine Clearance 34 ml/min; Glucose 89 mg/dl (70-99); Potassium 4.3 mmol/L (3.5-5.1); Sodium 138 mmol/L (135-145)
[2024-03-27 10:54] LABS: INR 2.74; PT 28.9 Sec (11.4-14.6)
[2024-03-27 11:15] VITALS: BP 159/83
[2024-03-27] MEDS: NSS IV (12:27)
--- NOTE | 2024-03-27 12:31 | VATNOTE ---
Left arm with + 4 infiltrate from hand to elbow. IV removed Arm elevated and warm compresses applied.
--- NOTE | 2024-03-27 13:15 | W.PN.HOSP.TC ---
Today's Communication/Plan
-
Patient's breathing is slightly heavy today she has rales on exam
Creatinine has not improved much since yesterday
I will hold further IV fluids
Chest x-ray
Also get an echo
Holding losartan but blood pressure slowly creeping up therefore add hydralazine temporarily and resume losartan when creatinine is stable.
Depending upon chest x-ray we may need to add Lasix back but I would probably also wait until echo.
Assessment / Plan
Assessment / Plan
'78-year-old female with weakness and confusion. She had a cough for the past several weeks was treated with steroids and nebulizers with improvement. Patient states that she fell yesterday in the bathroom. Did not lose consciousness. She also
has right shoulder problems for which she got injection 2 weeks ago.'
Cardiovascular system- S1 S2 appreciated
B/L Rales
Abdomen soft and nontender
mild lower extremity edema
Neuro exam-able to move all extremities no facial droop
# Metabolic encephalopathy-TME likely secondary to UTI
Back to baseline
Continue ceftriaxone
COVID is negative
# Acute kidney injury
Holding Lasix and losartan
Stop IV fluids as she looks slightly SOB and has rales
Creatinine not improving much since yesterday
I would stop IV fluids, get a chest x-ray
Also get an echo tomorrow.
Repeat urinalysis and also urine sodium
# Forehead and shoulder ecchymosis
From fall
CT of the head is negative
X-ray of the shoulder negative
# Diarrhea for the past few days
No diarrhea now
# Hyponatremia-likely hypovolemic-better
# Lactic acidosis resolved
# Paroxysmal atrial fibrillation
Pacemaker
Continue Coumadin per INR
Presently coagulopathy secondary to Coumadin
Continue sotalol
# Essential hypertension-hold losartan. (Add Hydralazine temporarily till creat stabilizes)
# Chronic anemia
# COPD-continue albuterol as needed Wixela or equivalent, Spiriva
# Chronic lower extremity edema-holding Lasix
# Hypothyroidism-continue levothyroxine
# History breast cancer status post bilateral mastectomy
# DVT prophylaxis-elevated INR
# DNR per pt preference
Discussed with nursing
Nestor [phone]
Anticipated Discharge: Within 24 hours
Subjective/Interval History
-
Date of Service: March 27, 2024
Objective Data
-
Labs:
Laboratory Results
03/27/24 03/27/24
06:35 09:47
PT Cancelled 28.9 H
INR Cancelled 2.74
Sodium 138
Potassium 4.3
Chloride 112 H
Carbon Dioxide 18 L
BUN 33 H
Creatinine 1.3 H
Glucose 89
Calcium 8.4
Vital Signs:
Vital Signs
Temp Pulse Resp BP Pulse Ox
97.5 F 70 36 159/83 94
03/27/24 11:15 03/27/24 11:15 03/27/24 11:15 03/27/24 11:15 03/27/24 11:15
I&O
03/26/24 03/27/24 03/28/24
06:59 06:59 06:59
Intake Total 240 / 1040 2104 / 2104
Balance 240 / 1040 2104
[2024-03-27] MEDS: APRESOLINE 10 MG PO ×3 (13:54→21:24)
[2024-03-27 15:00] VITALS: BP 145/69
[2024-03-27] MEDS: COUMADIN 2.5 MG PO (16:46)
[2024-03-27 18:22] LABS: Urine Albumin 1+ (Neg - Trace); Urine Bilirubin Negative (Negative); Urine Character Slightly Cloudy (Clear); Urine Color Yellow; Urine Glucose Negative (Negative); Urine Ketone Negative (Negative); Urine Leukocyte 2+ (Negative); Urine Nitrite Negative (Negative); Urine Occult Blood 3+ (Negative); Urine Urobilinogen Negative (Neg - 1+)
[2024-03-27 18:43] LABS: Urine Bacteria Moderate (Negative); Urine White Cell 30-40 /HPF (0-5)
[2024-03-27 18:49] LABS: Urine Sodium 53 mmol/L (30-90)
[2024-03-27 19:40] VITALS: BP 164/82
[2024-03-27] MEDS: ROCEPHIN 1000 MG IV (21:19)
[2024-03-27] MEDS: STERILE WATER FOR INJECTION 10 ML IV (21:20)
[2024-03-27] MEDS: ZYRTEC 5 MG PO (21:22)
[2024-03-27 23:55] VITALS: BP 163/76
[2024-03-28] VITALS (8 sets, daily range): BP systolic 126–194; BP diastolic 54–104; PULSE 70–78; O2SAT 97; BMI 24.6
[2024-03-28] MEDS: SYNTHROID 150 MCG PO (05:56)
--- NOTE | 2024-03-28 06:46 | PTCARENOTE ---
Resp have remained @ 30 - 35/min. Pt denies feeling SOB. Attempted to apply O2 for pt comfort, but refused each time.
[2024-03-28] MEDS: SPIRIVA RESPIMAT 2.5 MCG INH (08:09)
[2024-03-28] MEDS: ADVAIR HFA 45/21 MCG INHALER INH (08:09)
--- NOTE | 2024-03-28 09:00 | VATNOTE ---
Trace pitting edema noted to L arm infiltrate. Heat applied and arm elevated.
[2024-03-28 09:36] LABS: INR 2.88; PT 30.1 Sec (11.4-14.6)
[2024-03-28] MEDS: BETAPACE 40 MG PO (09:41)
[2024-03-28] MEDS: ROBITUSSIN 200 MG PO ×4 (09:41→22:05)
[2024-03-28] MEDS: OCUVITE SOFTGEL 1 CAP PO ×2 (09:41→20:38)
[2024-03-28] MEDS: APRESOLINE 10 MG PO ×3 (09:41→22:05)
[2024-03-28] MEDS: REFRESH CELLUVISC GEL 1 DROPS RIGHT EYE ×2 (09:42→20:38)
[2024-03-28] MEDS: LIDOCAINE 4% PATCH 1 PATCH TOPICAL (09:42)
[2024-03-28 11:37] LABS: Blood Urea Nitrogen 32 mg/dl (7-17); Calcium 8.8 mg/dl (8.4-10.2); Carbon Dioxide 19 mmol/L (22-30); Chloride 112 mmol/L (98-107); Estimated Creatinine Clearance 34 ml/min; Glucose 100 mg/dl (70-99); Potassium 5.2 mmol/L (3.5-5.1); Sodium 140 mmol/L (135-145)
--- NOTE | 2024-03-28 15:03 | W.PN.HOSP.TC ---
Today's Communication/Plan
-
resume IVF
change diet to Pureed
speech therapy consult
decrease dose of Coumadin
reviewed with brother, many issues
Assessment / Plan
Assessment / Plan
'78-year-old female with weakness and confusion. She had a cough for the past several weeks was treated with steroids and nebulizers with improvement. Patient states that she fell [employer] in the bathroom. Did not lose consciousness. She also has
right shoulder problems for which she got injection 2 weeks ago.'
# Metabolic encephalopathy-TME likely secondary to UTI
approaching baseline, but not there yet as per brother
Continue ceftriaxone
COVID is negative
WBC 16.4-->13.5-->10.6k
Pt remains very weak and is at risk for aspiration
will change diet to Pureed and request speech therapy input
# Acute kidney injury
improved BUN/Creat
42/2.0-->47/2.0-->45/1.7-->32/1.3
Holding Lasix and losartan
Stopped IV fluids as she looks slightly SOB and has rales
pt has marginal oral intake, tough situation, with rising K will resume IVF at low rate infusion until oral intake improves
chest x-ray: Small bilateral pleural effusions. New
Moderate elevation of the right hemidiaphragm. Stable
Mild cardiomegaly. New
Also get an echo pending
Repeat urinalysis and also urine sodium
# Forehead and shoulder ecchymosis
From fall
CT of the head is negative
X-ray of the shoulder negative
# Diarrhea for the past few days
No diarrhea now
# Hyponatremia-likely hypovolemic-better
134-->140
# Lactic acidosis resolved
# Paroxysmal atrial fibrillation
Pacemaker
Continue Coumadin per INR
INR 2.88, with poor oral intake will decrease dose
Presently coagulopathy secondary to Coumadin
Continue sotalol
# Essential hypertension-hold losartan. (Add Hydralazine temporarily till creat stabilizes)
# Chronic anemia
# COPD-continue albuterol as needed Wixela or equivalent, Spiriva
# Chronic lower extremity edema-holding Lasix
# Hypothyroidism-continue levothyroxine
# History breast cancer status post bilateral mastectomy
# DVT prophylaxis-elevated INR
# DNR per pt preference
Discussed with nursing
many issues
Nestor [phone] (brother) 25 minutes reviewing situation
total time 60 minutes
Anticipated Discharge: > 48 hours
Subjective/Interval History
-
Date of Service: March 28, 2024
Poor appetite, frequent coughing
Objective Data
-
Labs:
Laboratory Results
03/28/24
08:57
PT 30.1 H
INR 2.88
Sodium 140
Potassium 5.2 H
Chloride 112 H
Carbon Dioxide 19 L
BUN 32 H
Creatinine 1.3 H
Glucose 100 H
Calcium 8.8
Vital Signs:
Vital Signs
Temp Pulse Resp BP Pulse Ox
97.3 F 72 24 126/54 98
03/28/24 11:00 03/28/24 11:00 03/28/24 11:00 03/28/24 11:00 03/28/24 11:00
I&O
03/27/24 03/28/24 03/29/24
06:59 06:59 06:59
Intake Total 2104 740 / 0
Balance 2104 740 /
Review of Systems
-
Unable to obtain full review of systems at this time due to: Acuity
History Source: Family (brother-Nestor)
Constitutional: Denies Fever
Respiratory: Reports Cough
Cardiac: Reports No Symptoms
Abdomen/GI: Reports Anorexia (poor oral intake)
Physical Exam
-
General: Well Developed, Well Nourished and Appears Chronically Ill
HEENT: Normocephalic, Atraumatic and Moist Mucous Membranes
Respiratory: Rales (bibasilar rales)
Cardiac: Regular Rhythm and S1/S2
GI: Soft, Nontender and Nondistended
Musculoskeletal: No Clubbing, No Cyanosis and No Edema
Neuro: Awake; Negative Alert (lethargic)
[2024-03-28] MEDS: D5/0.45%NACL 1000 IV (16:22)
[2024-03-28] MEDS: COUMADIN 1 MG PO (16:46)
[2024-03-28] MEDS: ADVAIR HFA 45/21 MCG INHALER 2 PUFF INH (19:24)
[2024-03-28] MEDS: STERILE WATER FOR INJECTION 10 ML IV (20:38)
[2024-03-28] MEDS: ZYRTEC 5 MG PO (20:39)
[2024-03-28] MEDS: ROCEPHIN 1000 MG IV (20:39)
[2024-03-29 03:15] VITALS: BP 147/68
[2024-03-29 05:54] VITALS: BMI 25.1
[2024-03-29] MEDS: SYNTHROID 150 MCG PO (06:02)
[2024-03-29 07:00] VITALS: BP 154/115
[2024-03-29] MEDS: SPIRIVA RESPIMAT 2.5 MCG 2 PUFF INH (07:27)
[2024-03-29] MEDS: ADVAIR HFA 45/21 MCG INHALER 2 PUFF INH ×2 (07:27→19:36)
--- NOTE | 2024-03-29 07:34 | W.PN.HOSP.TC ---
Today's Communication/Plan
-
IV antibiotics. Resume diuretics and rest of cardiac medications.
Assessment / Plan
Assessment / Plan
Physical exam:
General: Acutely ill
HEENT: Normocephalic, Atraumatic and Moist Mucous Membranes. Forehead ecchymosis
Respiratory: Coarse crackles in the bases; Scattered rhonchi; Negative Wheezes or Rales
Cardiac: Regular Rhythm and S1/S2, no murmurs.
GI: Soft, Nontender and Nondistended
Musculoskeletal: Bilateral lower extremity edema slightly more pronounced on the left. No Clubbing, No Cyanosis and No Edema. Shoulder ecchymosis
Neuro: Awake, Alert and Oriented
Psych: Calm
A/P:
Toxic metabolic encephalopathy:
Improving overall
Continue to monitor mental status
PT OT recommends return to rehab
Speech therapy recommend advance diet
Updated brother over the phone today, Mateo
UTI:
Continue IV Rocephin and switch to oral over the next 24 to 48 hours
WBC 16.4--> 6.9 today
Urine culture E. coli pansensitive
On IV fluids but stop today
Monitor signs of infection
ADRIANNA on CKD:
Creatinine today 1.2
Creatinine upon admission 2.0
On IV fluids but stopped today
Avoid nephrotoxic
Continue to monitor renal function
Hyperkalemia:
Resolved (ARB on hod and adrianna resolving)
Cardiomyopathy:
Echocardiogram revealed EF of 39%
On IV fluids but stopped today
BNP 22,300 today
Cardiology consulted today given concerns of volume overload at the moment but in the setting of recent ADRIANNA
Monitor ins and outs
Monitor daily weight
Reviewed latest echocardiogram
Cardiology would like to resume diuretics and the following medications:
Started on beta-blockers, Toprol-XL 25 mg daily
Plan to restart her on ARB, losartan 25 mg daily and monitor renal function and potassium
Started on Jardiance 10 mg p.o. daily today
Paroxysmal atrial fibrillation:
On antiarrhythmics, sotalol 40 mg daily
On anticoagulants, warfarin--> she got 1 mg last night so we will hold tonight and restart tomorrow at a low dose (it looks like she is on 2.5 daily at home).
INR 3.16 today
Resume warfarin tomorrow after rechecking INR
Pacemaker check to evaluate for A-fib burden
Hypertension:
Currently on hydralazine, metoprolol succinate, losartan, and furosemide
Monitor blood pressure adjust medications accordingly
Anemia:
Hemoglobin stable, hb 10.3 today
No signs of active bleeding
Continue to monitor hemoglobin as needed
COPD:
No bronchospasm
Continue Advair, Spiriva
Albuterol nebs as needed
Hypothyroidism:
Continue levothyroxine 150 mcg daily
Acute diarrhea:
Resolved
Hyponatremia:
Improved
Sodium 137 today
History of breast cancer:
Bilateral mastectomy in the past
DVT prophylaxis:
On Warfarin
CODE STATUS:
DNR
Total time spent on today's encounter was 52 minutes which included time spent in counseling the patient/family regarding diagnosis and treatment plan as listed above, goals of care, and symptom management. Case was discussed with nursing staff,
specialists, and care coordinators/case management. All labs and imaging personally reviewed by me. Remainder the time spent in detailed review of previous records, lab data, imaging, and other medical provider documentation.
Anticipated Discharge: > 48 hours
Subjective/Interval History
-
Date of Service: March 29, 2024
Patient still with generalized weakness although overall feels some improvement. She has some shortness of breath today. She does have peripheral edema. She does have urinary frequency but denies dysuria. No abdominal pain nausea vomiting.
Afebrile
Objective Data
-
Labs:
Laboratory Results
03/29/24
06:00
WBC Pending
Hgb Pending
Hct Pending
Plt Count Pending
PT Pending
INR Pending
Sodium Pending
Potassium Pending
Chloride Pending
Carbon Dioxide Pending
BUN Pending
Creatinine Pending
Glucose Pending
Calcium Pending
Vital Signs:
Vital Signs
Temp Pulse Resp BP Pulse Ox
97.8 F 85 16 147/68 96
03/29/24 03:15 03/29/24 07:28 03/29/24 07:28 03/29/24 03:15 03/29/24 07:28
I&O
03/28/24 03/29/24 03/30/24
06:59 06:59 06:59
Intake Total 740 / 740 180 / 180
Balance 740 / 740 180 / 180
--- NOTE | 2024-03-29 07:35 | CON.CAR ---
Addendum entered and electronically signed by Kalyan Quinteros MD 03/29/24 11:33:
I saw and examined the patient.
The DELIVERY REPRESENTATIVE or PA's note was reviewed and I agree with the note.
Comment: General: Well developed, well nourished in NAD.
Neck: Supple, no JVD, HJR, carotids +2 B/L, no bruits bilaterally.
Heart: Non displaced PMI, RRR, no murmurs, No S3, S4, no rubs.
Lungs: Scattered rhonchi
Abdomen: Normal bowel sounds, soft, non-tender, non-distended.
Extremities: No clubbing, cyanosis or edema bilaterally.
Neuro: Grossly nonfocal, awake, alert and oriented x3.
Ping has a history of atrial fibrillation, atrial flutter on chronic sotalol and warfarin, status post [employer] pacemaker. She was admitted with weakness and a fall as well as UTI. She was given IV fluids then had shortness of breath.
Echocardiogram was ordered with ejection fraction 39% and cardiology was consulted. Volume status is difficult but will reassess with starting oral Lasix. Will need to follow renal function as creatinine was 2.0 on admission. Reviewed records
from [place] and patient was apparently in sinus rhythm for most of last pacemaker check but may have permanent atrial fibrillation or atrial flutter at present. Will likely discontinue sotalol but will await pacer check.
Original Note:
Consultation
Consultation Request
Date/Time Consultation Requested: 03/29/24 at 0727
Date/Time Consultation Performed: 03/29/24 at 0736
Requesting Provider: Dr. Gutierrez
Performing Provider: Dr. Quinteros
Reason for Consultation: Abnormal echo, newly diagnosed CM
Medical History
-
History of Present Illness:
Patient came to [facility] from [facility] last Thursday with weakness resulting in a fall and was admitted with a UTI. Patient has remained hospitalized with ADRIANNA that was being managed with IVFs and then patient started with SOB and rales so an echo was
ordered and now cardiology is consulted. Patient is a fair historian, she can tell me that she was living in her own apartment until this past winter when she had weakness and a fall resulting in a 2 week admission to [facility]. After [facility] she went to
[facility] rehab and then to [facility] for long-term care, her nephew works in the PT dept at [facility] and by chance her roommate is an old friend. There are no plans for her to return to independent living. She cannot recall the name of her net fisher or
the reason she had a PPM placed so called [facility] for records and they are reviewed above. Patient has a [employer] PPM in place and at last device check on 11/10/23 her Afib burden was less than 1%. It looks like she is in typical atrial flutter
underlying rhythm now, but she denies palpitations. She is chronically on sotalol but only 40 mg daily. EF was normal in 2021.
PMH:
Paroxysmal Afib and h/o atrial flutter
Chronic sotalol therapy
Chronic warfarin OAC
[employer] PPM
Past Medical History
Past Medical History: Other (in HPI)
Past Surgical History: Gynecological (B/L mastectomy)
Social History
Tobacco: Former Smoker
Alcohol: None
Drug: None
Living: Snf (used to live independently in an apartment in [place], but now long-term [facility] since 09/2023)
Family History
Family History: Reviewed & Not Pertinent
Allergies / Home Medications
Allergy/AdvReac Type Severity Reaction Status Date / Time
ramipril Allergy Mild Rash Verified 03/23/24 16:11
�Medication �Instructions �Recorded �Confirmed �Type
acetaminophen 325 mg tablet 650 mg PO Q4HPRN PRN mild 03/23/24 03/23/24 History
pain/fever >100.4
albuterol sulfate 2.5 mg/3 mL 2.5 mg inhalation R Q4HPRN PRN SOB 03/23/24 03/23/24 History
(0.083 %) solution for nebulization
benzonatate 100 mg capsule 100 mg PO Q8HPRN PRN cough 03/23/24 03/23/24 History
bisacodyl 10 mg rectal suppository 10 mg LA DAILYPRN PRN day 3 no bm, 03/23/24 03/23/24 History
mom ineffective
carboxymethylcellulose sodium 1 % 1 drp RIGHT EYE BID Eye Condition 03/23/24 03/23/24 History
eye drops
cetirizine 5 mg tablet 5 mg PO DAILY@2030 Allergies 03/23/24 03/23/24 History
dextromethorphan-guaifenesin 20 10 ml PO Q6HPRN PRN cough 03/23/24 03/23/24 History
mg-200 mg/10 mL oral liquid in
packet
fluticasone 100 mcg-salmeterol 50 1 inh inhalation R BID 03/23/24 03/23/24 History
mcg/dose blistr powdr for Lung/Breathing Issues
inhalation (Wixela Inhub)
furosemide 20 mg tablet 20 mg PO DAILY Fluid 03/23/24 03/23/24 History
Retention/Swelling
levothyroxine 150 mcg tablet 150 mcg PO DAILY Thyroid 03/23/24 03/23/24 History
lidocaine 4 % topical patch 1 patch topical DAILY right 03/23/24 03/23/24 History
shoulder
losartan 25 mg tablet 25 mg PO DAILY@1830 Blood Pressure 03/23/24 03/23/24 History
magnesium hydroxide 400 mg/5 mL 30 ml PO HSPRN PRN consipation 03/23/24 03/23/24 History
oral suspension (Milk of Magnesia)
sennosides 8.6 mg-docusate sodium 2 tab-cap PO DAILY Constipation 03/23/24 03/23/24 History
50 mg tablet
sotalol 80 mg tablet 40 mg PO DAILY Heart 03/23/24 03/23/24 History
Disease/Condition
tiotropium bromide 2.5 2 puff inhalation R DAILY 03/23/24 03/23/24 History
mcg/actuation mist for inhalation Lung/Breathing Issues
(Spiriva Respimat)
vit C 250 mg-vit E 90 mg-zinc 40 1 tab PO BID Supplement 03/23/24 03/23/24 History
mg-copper 1 [id number]
capsule (PreserVision AREDS-2)
warfarin 2.5 mg tablet (Jantoven) 2.5 mg PO DAILY@1830 Blood Clot 03/23/24 03/23/24 History
Prevention/Tx
Review of Systems
-
History Source: Patient
All other systems: Negative unless noted
Physical Exam
Vital Signs
Temp Pulse Resp BP Pulse Ox
97.8 F 85 16 147/68 96
03/29/24 03:15 03/29/24 07:28 03/29/24 07:28 03/29/24 03:15 03/29/24 07:28
GEN: NAD. AAOx3
HEENT: EOMI, MMM
LUNGS: CTA B/L, no wheezes or rales
CV: Reg, S1/S2, no murmur
ABD: soft, BS+, NT, ND
EXT: Trace B/L LE edema. No clubbing, cyanosis or lesions B/L
NEURO: Gross non-focal
SKIN: Warm, dry and pink. No rash
Lab Results
Labs 03/29/2024:
CBC: Hemoglobin 10.3, HCT 31.5, WBC 6.9, PLT 274
BMP: Sodium 137, potassium 4.4, BUN 20, creatinine 1.2
INR 3.16
Impression / Plan
-
PCP: Dr. Rodriguez at [facility]
Cardiology:
Impression:
Admitted with fall and weakness 03/23/24
UTI
TME
ADRIANNA
Newly diagnosed CM EF 39% by echo 03/28/24
Paroxysmal Afib and h/o atrial flutter
Chronic sotalol therapy
Chronic warfarin OAC
[employer] PPM
Device check 11/10/2023: Performed [facility] office, [employer] settings DDDR, 100% V paced, A-fib burden less than 1%
Echo 07/24/2022: [facility] study, EF 55 to 60%, no regional wall motion abnormalities, normal RV size and function, mild MR, no , mild aortic insufficiency
Echo 03/28/2024: EF 39%, global hypokinesis, stage II diastolic dysfunction, normal RV size and function, moderate MR, mild to moderate TR with PAP 63 mmHg
Plan:
-Patient came to [facility] from [facility] last Thursday with weakness resulting in a fall and was admitted with a UTI. Patient has remained hospitalized with ADRIANNA that was being managed with IVFs and then patient started with SOB and rales so an echo was
ordered and now cardiology is consulted. Patient is a fair historian, she can tell me that she was living in her own apartment until this past winter when she had weakness and a fall resulting in a 2 week admission to [facility]. After [facility] she went to
[facility] rehab and then to [facility] for long-term care, her nephew works in the PT dept at [facility] and by chance her roommate is an old friend. There are no plans for her to return to independent living. She cannot recall the name of her net fisher or
the reason she had a PPM placed so called [facility] for records and they are reviewed above. Patient has a [employer] PPM in place and at last device check on 11/10/23 her Afib burden was less than 1%. It looks like she is in typical atrial flutter
underlying rhythm now, but she denies palpitations. She is chronically on sotalol but only 40 mg daily. EF was normal in 2021.
-EF reduced at 39% and this is new compared to last echo 07/24/22 form [facility]. Will adjust meds for GDMT.
-Outpatient dose of losartan 25 mg daily was held for ADRIANNA on admission. Cre is improving from 2.0 on admission to 1.2 today. Will restart losartan 25 mg daily 03/29/24.
-Start Toprol XL 25 mg daily
-Start Jardiance 10 mg daily
-Patient with Cre as high as 2.0 on admission and patient given 7.5 L IVFs. Outpatient dose of Lasix 20 mg PO daily has been on hold since admission. Weight is up 12 lbs from admission. Check pro-BNP. Will restart Lasix 20 mg PO daily 03/29/24.
-Patient is chronically on sotalol 40 mg daily and previous Afib burden was less than 1% as of 11/10/23, but appears to be in underlying atrial flutter now. Texted device rep to interrogate and if atrial arrhythmia burden has increased then would
stop sotalol.
-Patient has been on warfarin chronically. She does not recall adverse reaction to a DOAC. INR 3.16 on 03/29/24. Could change warfarin to Eliquis 5 mg BID (age 83, Cre 1.2, wt 79 kg). Cost might have been an issue previously, but she is planning on
staying at [facility] long-term and they handle her meds for her.
[2024-03-29 09:11] LABS: % Basophils 0.3 % (0-2); % Eosinophils 2.9 % (0-6); % Immature Granulocytes 1.6 % (0-0.5); % Lymphocytes 18.4 % (20.5-51.1); % Monocytes 11.5 % (1.7-9.3); % Neutrophils 65.3 % (42.2-75.2); Absolute Eosinophils 0.2 10^3/uL (0-0.7); Absolute Immature Granulocytes 0.1 10^3/uL (0-0.05); Absolute Lymphocytes 1.3 10^3/uL (1.2-3.4); Absolute Monocytes 0.8 10^3/uL (0.1-0.6); Absolute Neutrophils 4.5 10^3/uL (1.4-6.5); Hematocrit 31.5 % (37.0-47.0); Hemoglobin 10.3 g/dL (12.0-16.0); Mean Corp Hgb Conc. 32.7 g/dL (33.0-37.0); Mean Corpuscular Volume 82.7 fL (81.0-99.0); Mean Platelet Volume 9.7 fL (7.4-10.4); Nucleated Red Blood Cells % 0 %; Platelet Count 274 10^3/uL (130-400); Red Blood Cell Count 3.81 10^6/uL (4.20-5.40); Red Cell Dist. Width 17.9 % (11.5-14.5); White Blood Cell Count 6.9 10^3/uL (4.8-10.8)
[2024-03-29] MEDS: REFRESH CELLUVISC GEL 1 DROPS RIGHT EYE ×2 (09:11→20:33)
[2024-03-29] MEDS: OCUVITE SOFTGEL 1 CAP PO ×2 (09:11→20:33)
[2024-03-29] MEDS: ROBITUSSIN 200 MG PO ×3 (09:11→22:20)
[2024-03-29] MEDS: BETAPACE 40 MG PO (09:11)
[2024-03-29 09:12] LABS: INR 3.16; PT 32.4 Sec (11.4-14.6)
[2024-03-29] MEDS: APRESOLINE 10 MG PO ×3 (09:12→22:40)
[2024-03-29] MEDS: LIDOCAINE 4% PATCH 1 PATCH TOPICAL (09:12)
[2024-03-29 09:24] LABS: Blood Urea Nitrogen 28 mg/dl (7-17); Calcium 8.4 mg/dl (8.4-10.2); Carbon Dioxide 22 mmol/L (22-30); Chloride 113 mmol/L (98-107); Estimated Creatinine Clearance 37 ml/min; Glucose 96 mg/dl (70-99); Potassium 4.4 mmol/L (3.5-5.1); Sodium 137 mmol/L (135-145); eGFR 44.36
--- NOTE | 2024-03-29 09:32 | PTOTSP ---
Speech Therapy Assessment
Patient with baseline cough and one instance of prolonged cough with dry solid - unclear if related to swallow vs baseline cough. No further instances of coughing with intake and nursing reports no observed coughing with intake.
Recommend
1. IDDSI 6 - soft and bite-sized and Thin Liquids
2. Upright with meals.
3. Meds as best tolerated
ST will follow and determine need for further diet modifications vs instrumental testing.
[2024-03-29 11:00] VITALS: BP 149/66
[2024-03-29] MEDS: LASIX 20 MG PO (11:54)
[2024-03-29] MEDS: TOPROL XL 25 MG PO (11:55)
[2024-03-29 14:42] LABS: NT-proBNP 22300 pg/ml
[2024-03-29 15:38] VITALS: BP 135/64
--- NOTE | 2024-03-29 15:47 | W.CARD.DEVCH ---
Cardiac Device Check
-
Device: Pacemaker
Carrier Driver: [employer]
The patient's device was interrogated with assistance of the device congressional representative followed by a complete physician review. The device had normal function. No abnormalities seen.
Atrial arrhythmia burden was less than 1% in 11/10/23, but is now up to 11% with several episodes of Afib lasting greater than 48 hours, the most recent being 03/23/24. The bulk of atrial arrhythmias have occurred in January and February. Will stop sotalol
and cont Toprol XL 25 mg daily.
[2024-03-29] MEDS: ROBITUSSIN PO (16:57)
[2024-03-29] MEDS: ROCEPHIN 1000 MG IV (20:32)
[2024-03-29] MEDS: ZYRTEC 5 MG PO (20:32)
[2024-03-29] MEDS: STERILE WATER FOR INJECTION 10 ML IV (20:32)
[2024-03-29 20:52] VITALS: BP 137/55
[2024-03-29 23:22] VITALS: BP 138/57
[2024-03-30] MEDS: SYNTHROID 150 MCG PO (04:27)
[2024-03-30 04:51] VITALS: BP 155/73
[2024-03-30 06:00] VITALS: BMI 24.3
[2024-03-30 07:30] VITALS: BP 165/74
[2024-03-30] MEDS: SPIRIVA RESPIMAT 2.5 MCG 2 PUFF INH (08:15)
[2024-03-30] MEDS: ADVAIR HFA 45/21 MCG INHALER 2 PUFF INH (08:16)
[2024-03-30 08:17] LABS: Hematocrit 30.3 % (37.0-47.0); Hemoglobin 9.7 g/dL (12.0-16.0); Mean Corpuscular Hgb 26.2 pg (27.0-31.0); Mean Corpuscular Volume 81.9 fL (81.0-99.0); Mean Platelet Volume 9.9 fL (7.4-10.4); Platelet Count 315 10^3/uL (130-400); Red Cell Dist. Width 18.4 % (11.5-14.5); White Blood Cell Count 6.7 10^3/uL (4.8-10.8)
[2024-03-30 08:24] LABS: INR 2.38; PT 26.3 Sec (11.4-14.6)
[2024-03-30 09:01] LABS: Blood Urea Nitrogen 24 mg/dl (7-17); Calcium 8.3 mg/dl (8.4-10.2); Carbon Dioxide 22 mmol/L (22-30); Chloride 110 mmol/L (98-107); Estimated Creatinine Clearance 34 ml/min; Glucose 87 mg/dl (70-99); Potassium 4.3 mmol/L (3.5-5.1); Sodium 136 mmol/L (135-145)
[2024-03-30] MEDS: OCUVITE SOFTGEL 1 CAP PO (09:54)
[2024-03-30] MEDS: ROBITUSSIN 200 MG PO ×3 (09:54→17:09)
[2024-03-30] MEDS: APRESOLINE 10 MG PO ×2 (09:54→17:08)
[2024-03-30] MEDS: JARDIANCE 10 MG PO (09:54)
[2024-03-30] MEDS: REFRESH CELLUVISC GEL 1 DROPS RIGHT EYE (09:55)
[2024-03-30] MEDS: COZAAR 25 MG PO (09:55)
[2024-03-30] MEDS: LIDOCAINE 4% PATCH 1 PATCH TOPICAL (09:55)
[2024-03-30] MEDS: TOPROL XL 25 MG PO (09:55)
[2024-03-30] MEDS: LASIX 20 MG PO (09:57)
--- NOTE | 2024-03-30 11:28 | W.PN.CARDCBS ---
Addendum entered and electronically signed by Dale Hensley DO 03/30/24 15:22:
I saw and examined the patient.
The Merchandising Team Lead's note was reviewed and I agree with the note.
Comment:
Plan:
Transition back to oral Lasix.
New cardiomyopathy compared to prior echo 2021.
Continue losartan and muted Toprol-XL and Jardiance.
Sotalol stopped given new cardiomyopathy and increased A-fib burden.
Continue Coumadin consider transition to NOAC as outpatient.
Further evaluation and treatment of cardiomyopathy with her outside registered medical assistant.
Original Note:
Today's Communication / Plan
-
Cont Lasix 20 mg daily, losartan 25 mg daily, Toprol XL 25 mg daily and Jardiance 10 mg daily upon d/c
Sotalol has been stopped this admission due to persistent Afib
Impression / Plan
-
PCP: Dr. Rodriguez at [facility]
Cardiology: Dr. Siegel at [facility] [phone]
Impression:
Admitted with fall and weakness 03/23/24
UTI
TME
ADRIANNA
Newly diagnosed CM EF 39% by echo 03/28/24
Paroxysmal Afib and h/o atrial flutter
Chronic sotalol therapy
Chronic warfarin OAC
[employer] PPM
Device check 11/10/2023: Performed AMS office, [place] [employer] settings DDDR, 100% V paced, A-fib burden less than 1%
Echo 07/24/2022: AMS study, EF 55 to 60%, no regional wall motion abnormalities, normal RV size and function, mild MR, no , mild aortic insufficiency
Echo 03/28/2024: EF 39%, global hypokinesis, stage II diastolic dysfunction, normal RV size and function, moderate MR, mild to moderate TR with PAP 63 mmHg
Plan:
-Recorded weights are from built in bed scale and are up and down. Outpatient dose of Lasix 20 mg PO daily restarted 03/29/24.
-EF reduced at 39% and this is new compared to last echo 07/24/22 form [facility].
-Outpatient dose of losartan 25 mg daily was held for ADRIANNA on admission, but restarted 03/30/24. Check BMP in 1-2 weeks as an outpatient
-New to Toprol XL 25 mg daily
-New to Jardiance 10 mg daily
-Patient with Cre as high as 2.0 on admission and patient given 7.5 L IVFs.
-Outpatient dose of sotalol 40 mg daily stopped due to persistent Afib with burden of 11% by device check 03/29/24.
-INR is therapeutic at 2.38 on 03/30/24. Patient has been on warfarin chronically and does not recall adverse reaction to a DOAC so could change to DOAC as an outpatient once INR is less than 2. Could change warfarin to Eliquis 5 mg BID (age 83, Cre
1.2, wt 79 kg). Cost might have been an issue previously, but she is planning on staying at [facility] long-term and they handle her meds for her.
-Patient will follow up with her primary registered medical assistant at [facility], Dr. Siegel, and cardiology notes have been cc'd.
HPI: Patient came to [facility] from [facility] last Thursday with weakness resulting in a fall and was admitted with a UTI. Patient has remained hospitalized with ADRIANNA that was being managed with IVFs and then patient started with SOB and rales so an echo was
ordered and now cardiology is consulted. Patient is a fair historian, she can tell me that she was living in her own apartment until this past winter when she had weakness and a fall resulting in a 2 week admission to [facility] After [facility] she went to
[facility] rehab and then to [facility] for long-term care, her nephew works in the PT dept at [facility] and by chance her roommate is an old friend. There are no plans for her to return to independent living. She cannot recall the name of her registered medical assistant or
the reason she had a PPM placed so called [facility] for records and they are reviewed above. Patient has a [place] PPM in place and at last device check on 11/10/23 her Afib burden was less than 1%. It looks like she is in typical atrial flutter
underlying rhythm now, but she denies palpitations. She is chronically on sotalol but only 40 mg daily. EF was normal in 2021.
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
Subjective
Date of Service: March 30, 2024
She feels well and would like to go back to [facility]
Objective
Labs:
03/30/24 07:41
03/30/24 07:41
Labs
Hgb 9.7 g/dL (12.0-16.0) L 03/30/24 07:41
Hct 30.3 % (37.0-47.0) L 03/30/24 07:41
Plt Count 315 10^3/uL (130-400) 03/30/24 07:41
PT 26.3 Sec (11.4-14.6) H 03/30/24 07:41
INR 2.38 03/30/24 07:41
Sodium 136 mmol/L (135-145) 03/30/24 07:41
Potassium 4.3 mmol/L (3.5-5.1) 03/30/24 07:41
BUN 24 mg/dl (7-17) H 03/30/24 07:41
Creatinine 1.3 mg/dL (0.6-1.0) H 03/30/24 07:41
Glucose 87 mg/dl (70-99) 03/30/24 07:41
Vital Signs and I&O:
Vital Signs
Temp Pulse Resp BP Pulse Ox
98 F 70 16 165/74 97
03/30/24 07:30 03/30/24 08:20 03/30/24 08:20 03/30/24 07:30 03/30/24 08:20
Vital Signs
Temp Pulse Resp BP Pulse Ox
98 F 70 16 165/74 97
03/30/24 07:30 03/30/24 08:20 03/30/24 08:20 03/30/24 07:30 03/30/24 08:20
Intake & Output
03/28/24 03/29/24 03/30/24 03/31/24
06:59 06:59 06:59 06:59
Intake Total 740 / 740 180 / 180 720 / 720
Balance 740 / 740 180 / 180 720 / 720
Physical Exam
Physical Exam
GEN: NAD. AAOx3
HEENT: EOMI
LUNGS: No audible wheeze
CV: V paced on tele
ABD: ND
EXT: Trace B/L LE edema.
NEURO: Gross non-focal
SKIN: No rash
[2024-03-30 11:29] VITALS: BP 163/68
--- NOTE | 2024-03-30 12:09 | W.PN.HOSP.TC ---
Addendum entered and electronically signed by Michel Ocasio MD 03/30/24 13:48:
Per RN, Joy Connolly does not need any new prescription for medications. They will have their physician order all those medications.
Original Note:
Today's Communication/Plan
-
monitor vitals
see plan
monitor INR
coumadin restarted
dc today to [facility]
dc further abx
sotalol stopped
Called brother, left voicemail
Time of discharge 37 minutes
Assessment / Plan
Assessment / Plan
Physical exam:
General: Acutely ill
HEENT: Normocephalic, Atraumatic and Moist Mucous Membranes. Forehead ecchymosis
Respiratory: No wheezing clear to auscultation
Cardiac: Regular Rhythm and S1/S2, no murmurs.
GI: Soft, Nontender and Nondistended
Musculoskeletal: Bilateral lower extremity edema slightly more pronounced on the left. No Clubbing, No Cyanosis and No Edema. Shoulder ecchymosis
Neuro: Awake, Alert and Oriented
Psych: Calm
A/P:
Toxic metabolic encephalopathy:
Improving overall
Continue to monitor mental status
PT OT recommends return to rehab
Speech therapy recommend advance diet
Updated brother over the phone today, Mateo
UTI:
Finished IV Rocephin
Urine culture E. coli pansensitive
ADRIANNA on CKD:
Creatinine today 1.3
Creatinine upon admission 2.0
On IV fluids but stopped
Avoid nephrotoxic
Continue to monitor renal function
Hyperkalemia:
Resolved (ARB on hod and adrianna resolving)
Newly diagnosed cardiomyopathy:
could be 2/2 afib/aflutter burden
Echocardiogram revealed EF of 39%
On IV fluids but stopped
Cardiology consulted today given concerns of volume overload at the moment but in the setting of recent ADRIANNA. does not appear overtly volume overloaded per cardiology and is ok with PO lasix
Patient will follow with cardiology outpatient
Monitor ins and outs
Monitor daily weight
Reviewed latest echocardiogram
Cardiology would like to resume diuretics and the following medications:
Started on beta-blockers, Toprol-XL 25 mg daily
Plan to restart her on ARB, losartan 25 mg daily and monitor renal function and potassium
Started on Jardiance 10 mg p.o. daily
Paroxysmal atrial fibrillation/aflutter
On antiarrhythmics, sotalol 40 mg daily
On anticoagulants, warfarin--> restart Coumadin at 2 mg daily. Repeat INR outpatient
INR 2.38
Pacemaker checked by cardiology and patient has a lot of A-fib/a flutter burden. Sotalol discontinued. Continue with metoprolol
Hypertension:
Currently on hydralazine, losartan, and furosemide
Monitor blood pressure adjust medications accordingly
Anemia
unknown etiology or acuity; suspect anemia of chronic disease
monitor
No signs of active bleeding
Continue to monitor hemoglobin as needed
COPD:
No bronchospasm
Continue Advair, Spiriva
Albuterol nebs as needed
Hypothyroidism:
Continue levothyroxine 150 mcg daily
Acute diarrhea:
Resolved
Hyponatremia:
Improved
Sodium 137 today
History of breast cancer:
Bilateral mastectomy in the past
DVT prophylaxis:
On Warfarin
CODE STATUS:
DNR
Anticipated Discharge: Today
Subjective/Interval History
-
Date of Service: March 30, 2024
denies pain
Objective Data
-
Labs:
Laboratory Results
03/30/24
07:41
WBC 6.7
Hgb 9.7 L
Hct 30.3 L
Plt Count 315
PT 26.3 H
INR 2.38
Sodium 136
Potassium 4.3
Chloride 110 H
Carbon Dioxide 22
BUN 24 H
Creatinine 1.3 H
Glucose 87
Calcium 8.3 L
Vital Signs:
Vital Signs
Temp Pulse Resp BP Pulse Ox
98.3 F 72 18 163/68 96
03/30/24 11:29 03/30/24 11:29 03/30/24 11:29 03/30/24 11:29 03/30/24 11:29
I&O
03/29/24 03/30/24 03/31/24
06:59 06:59 06:59
Intake Total 180 / 180 720 / 720
Balance 180 / 180 720 / 720
--- NOTE | 2024-03-30 12:29 | W.DCSUMMARY ---
Discharge Summary
Discharge Data
Date of Admission: 03/23/24
Date of Discharge: 03/30/24
-
Pending Results: No
Hospital Course
83-year-old female with past medical history of CKD, paroxysmal atrial fibrillation/atrial flutter, hypertension, anemia, COPD, hypothyroidism, history of breast cancer came to the hospital with toxic metabolic encephalopathy secondary to urinary
tract infection. Patient finished course of antibiotics on this hospitalization prior to discharge. She also developed acute kidney injury on chronic kidney disease which over time continue to improve with fluids. She later started developing
shortness of breath where echocardiogram revealed ejection fraction of 39% with newly diagnosed cardiomyopathy. Patient was then seen by cardiology and her Lasix was restarted. She was also started on Jardiance, ARB and Toprol-XL. After
interrogating patient's cardiac device it was determined the patient has been having increased amounts of atrial flutter/atrial fibrillation load. Patient sotalol was then stopped. Once her symptoms continue to improve, she was then discharged
back to the family with instructions to follow-up with other physicians outpatient.
Discharge Plan
-
Patient Disposition: Other
Discharge Diagnosis/Procedures: Toxic metabolic encephalopathy
Urinary tract infection
Acute kidney injury on chronic kidney disease
New cardiomyopathy with EF of 39%
A-fib/a flutter
Diet: 2 Gram Sodium and Other diet
Additional Diets: Soft and bite-size with thin liquids
Activity: With assistance and As tolerated
Driving Restrictions: No driving
Bathing Restrictions: None
Blood Work: INR 04/01/2024, BMP next week
Specialty Instructions: Weigh Daily- Call MD for wt gain/loss 3 lbs overnight/5 lbs in 1 week
Referrals:
Josiah Rodriguez DO [Family Provider] - in less than 1 week
Paige Siegel MD [Non-Admitting Privileges] - in two to four weeks (Dr. Siegel at [facility] cardiology is your primary crew team member, you should be seen in the cardiology office in 2-4 weeks for hospital follow up.)
Prescriptions:
New
warfarin [Jantoven] 2 mg Tablet
2 mg PO QPM Qty: 30 0RF
losartan 25 mg Tablet
25 mg PO DAILY Qty: 30 0RF
Jardiance 10 mg Tablet
10 mg PO DAILY Qty: 30 0RF
hydralazine 10 mg Tablet
10 mg PO TID Qty: 90 0RF
metoprolol succinate 25 mg Tablet Extended Release 24 Hr
25 mg PO DAILY Qty: 30 0RF
Continued
lidocaine 4 % Adhesive Patch,Medicated
1 patch TOPICAL DAILY
cetirizine 5 mg Tablet
5 mg PO DAILY@2029
levothyroxine 150 mcg Tablet
150 mcg PO DAILY
furosemide 20 mg Tablet
20 mg PO DAILY
fluticasone propion-salmeterol [Wixela Inhub] 100-50 mcg/dose Blister With Device
1 inh INHALATION R BID
Spiriva Respimat 2.5 mcg/actuation Mist
2 puff INHALATION R DAILY
PreserVision AREDS-2 250-90-40-1 mg Capsule
1 tab PO BID
carboxymethylcellulose sodium 1 % Drops
1 drp RIGHT EYE BID
acetaminophen 325 mg Tablet
650 mg PO Q4HPRN MDD 3000 mg PRN (Reason: mild pain/fever >100.4)
albuterol sulfate 2.5 mg /3 mL (0.083 %) Solution For Nebulization
2.5 mg INHALATION R Q4HPRN PRN (Reason: SOB)
magnesium hydroxide [Milk of Magnesia] 400 mg/5 mL Suspension
30 ml PO HSPRN PRN (Reason: consipation)
benzonatate 100 mg Capsule
100 mg PO Q8HPRN PRN (Reason: cough)
bisacodyl 10 mg Suppository
10 mg AK DAILYPRN PRN (Reason: day 3 no bm, mom ineffective)
sennosides-docusate sodium 8.6-50 mg Tablet
2 tab-cap PO DAILY
dextromethorphan-guaifenesin 20-200 mg/10 mL Liquid In Packet
10 ml PO Q6HPRN PRN (Reason: cough)
Discontinued
sotalol 80 mg Tablet
40 mg PO DAILY
warfarin [Jantoven] 2.5 mg Tablet
2.5 mg PO DAILY@1829
Patient Comments:
03/23/24: dosage for 03/17/24-03/24/24
losartan 25 mg Tablet
25 mg PO DAILY@1830
Discharge Orders:
Discharge Patient (As Directed); Ordered 03/30/24
Ordered By: Michel Ocasio
Discharge Date and Time
Discharge Date/Time: 03/30/24 18:57
Print Language: KHMER
--- NOTE | 2024-03-30 13:58 | CM ---
Addendum entered by Valeria No 03/30/24 18:34:
Late note from 16:15:
Erroneous fax number entered below; was sent with all paperwork to [facility] and confirmed that it was received.
Original Note:
Ping is cleared for discharge back to [facility] today.
Call to [facility] and spoke with Vanessa Le who advised pt can return today. I spoke with her brother who was visiting to make him aware of plan for discharge back to [facility]. IMM reviewed with him and gave verbal consent.
Ambulance transport request submitted.
Plan: Discharge back to LTC at [facility] via Ambulance pending time for transport.
Report: [phone]
[2024-03-30 15:09] VITALS: BP 160/64
[2024-03-30] MEDS: COUMADIN 2 MG PO (17:08)
== END 2024-03-30 18:57 | DRG 689 ==
LOC: 4 EAST ACU 20:15
PROVIDERS: Emergency Medicine; Hospitalist; Internal Medicine; Nurse Practitioner; Physician Assistant Medical; ADMITTING PHYSICIAN Hospitalist; ATTENDING PHYSICIAN Internal Medicine; CONSULT PHYSICIAN Internal Medicine Cardiovascular Disease; EMERGENCY PHYSICIAN Emergency Medicine; FAMILY PHYSICIAN Student in an Organized Health Care Education/Training Program
DX: N39.0 Urinary tract infection, site not specified (principal); G93.41 Metabolic encephalopathy; N17.9 Acute kidney failure, unspecified; I42.9 Cardiomyopathy, unspecified; I48.92 Unspecified atrial flutter; E87.1 Hypo-osmolality and hyponatremia; E87.20 Acidosis, unspecified; D63.1 Anemia in chronic kidney disease; F03.90 Unspecified dementia, unspecified severity, without behavioral disturbance, psychotic disturbance, mood disturbance, and anxiety; N18.9 Chronic kidney disease, unspecified; J44.9 Chronic obstructive pulmonary disease, unspecified; I12.9 Hypertensive chronic kidney disease with stage 1 through stage 4 chronic kidney disease, or unspecified chronic kidney disease; E03.9 Hypothyroidism, unspecified; Z66 Do not resuscitate; R19.7 Diarrhea, unspecified; I48.0 Paroxysmal atrial fibrillation; K59.00 Constipation, unspecified; R53.1 Weakness; R60.0 Localized edema; W18.39XA Other fall on same level, initial encounter; Y92.121 Bathroom in nursing home as the place of occurrence of the external cause; Z79.890 Hormone replacement therapy; Z79.899 Other long term (current) drug therapy; Z87.891 Personal history of nicotine dependence; Z95.0 Presence of cardiac pacemaker; Z85.3 Personal history of malignant neoplasm of breast; Z90.13 Acquired absence of bilateral breasts and nipples; Z88.8 Allergy status to other drugs, medicaments and biological substances
CPT/HCPCS: 51701; 70450; 71046; 73030; 74019; 80048; 80053; 81003; 81015; 83605; 83735; 83880; 84300; 85025; 85027; 85610; 87070; 87077; 87086; 87186; 87811; 92610; 93005; 93306; 94640; 96361; 96374; 97163; 97167; 97530; 97535; 99285

== ENCOUNTER → 2024-04-06 10:41 | Outpatient (REF) | payer OTHER, MEDICARE, SELFPAY ==
[2024-04-06 11:34] LABS: % Basophils 0.8 % (0-2); % Eosinophils 2.1 % (0-6); % Immature Granulocytes 0.3 % (0-0.5); % Lymphocytes 29.9 % (20.5-51.1); % Monocytes 10.3 % (1.7-9.3); % Neutrophils 56.6 % (42.2-75.2); Absolute Basophils 0.1 10^3/uL (0-0.2); Absolute Eosinophils 0.1 10^3/uL (0-0.7); Absolute Lymphocytes 1.9 10^3/uL (1.2-3.4); Absolute Monocytes 0.6 10^3/uL (0.1-0.6); Absolute Neutrophils 3.5 10^3/uL (1.4-6.5); Hematocrit 27.5 % (37.0-47.0); Hemoglobin 8.9 g/dL (12.0-16.0); Mean Corp Hgb Conc. 32.4 g/dL (33.0-37.0); Mean Corpuscular Hgb 27.7 pg (27.0-31.0); Mean Corpuscular Volume 85.7 fL (81.0-99.0); Nucleated Red Blood Cells % 0 %; Platelet Count 261 10^3/uL (130-400); Red Blood Cell Count 3.21 10^6/uL (4.20-5.40); Red Cell Dist. Width 18.9 % (11.5-14.5); White Blood Cell Count 6.2 10^3/uL (4.8-10.8)
[2024-04-06 11:47] LABS: Blood Urea Nitrogen 23 mg/dl (7-17); Calcium 8.6 mg/dl (8.4-10.2); Carbon Dioxide 24 mmol/L (22-30); Chloride 107 mmol/L (98-107); Glucose 85 mg/dl (70-99); Potassium 4.2 mmol/L (3.5-5.1); Sodium 137 mmol/L (135-145); eGFR 49.24
== END ==
LOC: OLABN 10:41
PROVIDERS: ATTENDING PHYSICIAN Student in an Organized Health Care Education/Training Program
DX: I48.0 Paroxysmal atrial fibrillation (principal); I10 Essential (primary) hypertension
CPT/HCPCS: 36415; 80048; 85025

== ENCOUNTER → 2024-05-12 08:46 | Outpatient (REF) | payer OTHER, MEDICARE, SELFPAY ==
[2024-05-12 09:38] LABS: Urine Albumin Negative (Neg - Trace); Urine Bilirubin Negative (Negative); Urine Character Slightly Cloudy (Clear); Urine Color Yellow; Urine Glucose 3+ (Negative); Urine Ketone Negative (Negative); Urine Leukocyte 2+ (Negative); Urine Nitrite Negative (Negative); Urine Occult Blood Negative (Negative); Urine Specific Gravity 1.015 (<1.030); Urine Urobilinogen Negative (Neg - 1+)
[2024-05-12 09:55] LABS: Urine Bacteria Many (Negative); Urine Red Blood Cell None Seen /HPF (0-2); Urine White Cell 70-80 /HPF (0-5)
== END ==
LOC: OLABN 08:46
PROVIDERS: ATTENDING PHYSICIAN Student in an Organized Health Care Education/Training Program
DX: N39.0 Urinary tract infection, site not specified (principal)
CPT/HCPCS: 81003; 81015; 87077; 87086; 87186

== ENCOUNTER → 2024-11-07 12:16 | Outpatient (REF) | payer MEDICARE, OTHER, SELFPAY ==
[2024-11-07 12:54] LABS: % Basophils 0.5 % (0-2); % Eosinophils 4.3 % (0-6); % Immature Granulocytes 0.2 % (0-0.5); % Lymphocytes 17.5 % (20.5-51.1); % Monocytes 11.1 % (1.7-9.3); % Neutrophils 66.4 % (42.2-75.2); Absolute Eosinophils 0.3 10^3/uL (0-0.7); Absolute Lymphocytes 1.1 10^3/uL (1.2-3.4); Absolute Monocytes 0.7 10^3/uL (0.1-0.6); Hemoglobin 8.7 g/dL (12.0-16.0); Mean Corpuscular Hgb 24.5 pg (27.0-31.0); Mean Corpuscular Volume 81.7 fL (81.0-99.0); Mean Platelet Volume 9.9 fL (7.4-10.4); Nucleated Red Blood Cells % 0 %; Platelet Count 203 10^3/uL (130-400); Red Blood Cell Count 3.55 10^6/uL (4.20-5.40); Red Cell Dist. Width 19.7 % (11.5-14.5); White Blood Cell Count 6.1 10^3/uL (4.8-10.8)
[2024-11-07 13:17] LABS: ALT (SGPT) 11 U/L (0-35); AST (SGOT) 18 U/L (14-36); Albumin 3.2 g/dl (3.5-5.0); Alkaline Phosphatase 105 U/L (38-126); Blood Urea Nitrogen 34 mg/dl (7-17); Calcium 8.8 mg/dl (8.4-10.2); Carbon Dioxide 25 mmol/L (22-30); Chloride 104 mmol/L (98-107); Glucose 92 mg/dl (70-99); HDL Cholesterol 58 mg/dl; LDL Cholesterol, Calculated 34 mg/dl; Potassium 4.4 mmol/L (3.5-5.1); Sodium 137 mmol/L (135-145); Total Bilirubin 0.5 mg/dl (0.2-1.3); Total Cholesterol 107 mg/dl (50-199); Total Protein 5.7 g/dl (6.3-8.2); Triglyceride 76 mg/dl (10-149); Very Low Density Lipoprotein 15 mg/dl (0-30); eGFR 33.73
[2024-11-07 13:18] LABS: Free T4 1.75 ng/dl (0.78-2.19)
[2024-11-07 13:31] LABS: TSH 3.39 uIU/ml (0.47-4.68)
== END ==
LOC: OLABN 12:16
PROVIDERS: ATTENDING PHYSICIAN Student in an Organized Health Care Education/Training Program
DX: E78.00 Pure hypercholesterolemia, unspecified (principal); E03.9 Hypothyroidism, unspecified
CPT/HCPCS: 36415; 80053; 80061; 84439; 84443; 85025

== ENCOUNTER → 2024-11-22 12:07 | Outpatient (REF) | payer MEDICARE, OTHER, SELFPAY ==
[2024-11-22 13:35] LABS: Blood Urea Nitrogen 44 mg/dl (7-17); Calcium 8.9 mg/dl (8.4-10.2); Carbon Dioxide 26 mmol/L (22-30); Chloride 106 mmol/L (98-107); Glucose 89 mg/dl (70-99); Potassium 4.9 mmol/L (3.5-5.1); Sodium 140 mmol/L (135-145); eGFR 31.21
== END ==
LOC: OLABN 12:07
PROVIDERS: ATTENDING PHYSICIAN Student in an Organized Health Care Education/Training Program
DX: R60.0 Localized edema (principal); I10 Essential (primary) hypertension
CPT/HCPCS: 36415; 80048

== ENCOUNTER → 2024-11-28 10:06 | Outpatient (REF) | payer MEDICARE, OTHER, SELFPAY ==
[2024-11-28 10:41] LABS: Blood Urea Nitrogen 39 mg/dl (7-17); Calcium 9.1 mg/dl (8.4-10.2); Carbon Dioxide 28 mmol/L (22-30); Chloride 103 mmol/L (98-107); Glucose 97 mg/dl (70-99); Potassium 4.5 mmol/L (3.5-5.1); Sodium 138 mmol/L (135-145); eGFR 29.02
== END ==
LOC: OLABN 10:06
PROVIDERS: ATTENDING PHYSICIAN Student in an Organized Health Care Education/Training Program
DX: R60.9 Edema, unspecified (principal)
CPT/HCPCS: 36415; 80048

== ENCOUNTER → 2024-11-30 11:55 | Outpatient (REF) | payer MEDICARE, OTHER, SELFPAY ==
[2024-11-30 12:40] LABS: Urine Albumin 2+ (Neg - Trace); Urine Bilirubin Negative (Negative); Urine Character Cloudy (Clear); Urine Color Yellow; Urine Glucose 4+ (Negative); Urine Ketone Negative (Negative); Urine Leukocyte 3+ (Negative); Urine Nitrite Negative (Negative); Urine Occult Blood 2+ (Negative); Urine Urobilinogen Negative (Neg - 1+)
[2024-11-30 13:51] LABS: Urine Bacteria Moderate (Negative); Urine Red Blood Cell 0-2 /HPF (0-2); Urine Squamous Cell 0-2 /LPF (Few); Urine White Cell 50-60 /HPF (0-5)
== END ==
LOC: OLABN 11:55
PROVIDERS: ATTENDING PHYSICIAN Student in an Organized Health Care Education/Training Program
DX: R30.9 Painful micturition, unspecified (principal); R35.0 Frequency of micturition
CPT/HCPCS: 81003; 81015; 87077; 87086; 87186

== ENCOUNTER → 2024-12-29 09:26 | Outpatient (REF) | payer MEDICARE, OTHER, SELFPAY ==
[2024-12-29 11:28] LABS: % Basophils 0.5 % (0-2); % Eosinophils 3.1 % (0-6); % Immature Granulocytes 0.3 % (0-0.5); % Lymphocytes 21.3 % (20.5-51.1); % Monocytes 12.1 % (1.7-9.3); % Neutrophils 62.7 % (42.2-75.2); Absolute Eosinophils 0.2 10^3/uL (0-0.7); Absolute Lymphocytes 1.2 10^3/uL (1.2-3.4); Absolute Monocytes 0.7 10^3/uL (0.1-0.6); Absolute Neutrophils 3.6 10^3/uL (1.4-6.5); Hematocrit 29.7 % (37.0-47.0); Mean Corp Hgb Conc. 30.3 g/dL (33.0-37.0); Mean Corpuscular Volume 79.2 fL (81.0-99.0); Mean Platelet Volume 9.5 fL (7.4-10.4); Nucleated Red Blood Cells % 0 %; Platelet Count 196 10^3/uL (130-400); Red Blood Cell Count 3.75 10^6/uL (4.20-5.40); White Blood Cell Count 5.7 10^3/uL (4.8-10.8)
[2024-12-29 11:45] LABS: Urine Albumin 2+ (Neg - Trace); Urine Bilirubin Negative (Negative); Urine Character Slightly Cloudy (Clear); Urine Color Yellow; Urine Glucose 4+ (Negative); Urine Ketone Negative (Negative); Urine Leukocyte 3+ (Negative); Urine Nitrite Positive (Negative); Urine Occult Blood 3+ (Negative); Urine Specific Gravity 1.015 (<1.030); Urine Urobilinogen Negative (Neg - 1+)
[2024-12-29 12:00] LABS: Blood Urea Nitrogen 36 mg/dl (7-17); Calcium 8.6 mg/dl (8.4-10.2); Carbon Dioxide 24 mmol/L (22-30); Chloride 107 mmol/L (98-107); Glucose 88 mg/dl (70-99); Potassium 4.5 mmol/L (3.5-5.1); Sodium 139 mmol/L (135-145); eGFR 33.73
[2024-12-29 13:11] LABS: Urine Bacteria Moderate (Negative); Urine Squamous Cell 0-2 /LPF (Few); Urine White Cell 80-90 /HPF (0-5)
== END ==
LOC: OLABN 09:26
PROVIDERS: ATTENDING PHYSICIAN Student in an Organized Health Care Education/Training Program
DX: R35.0 Frequency of micturition (principal); I10 Essential (primary) hypertension; J44.9 Chronic obstructive pulmonary disease, unspecified
CPT/HCPCS: 36415; 80048; 81003; 81015; 85025; 87077; 87086; 87186

== ENCOUNTER → 2025-04-11 10:06 | Outpatient (REF) | payer MEDICARE, OTHER, SELFPAY ==
[2025-04-11 11:27] LABS: Hematocrit 32.3 % (37.0-47.0); Hemoglobin 9.5 g/dL (12.0-16.0); Mean Corp Hgb Conc. 29.4 g/dL (33.0-37.0); Mean Corpuscular Volume 82.4 fL (81.0-99.0); Nucleated Red Blood Cells % 0 %; Platelet Count 217 10^3/uL (130-400); Red Cell Dist. Width 20.1 % (11.5-14.5)
[2025-04-11 11:48] LABS: Blood Urea Nitrogen 32 mg/dl (7-17); Calcium 8.6 mg/dl (8.4-10.2); Carbon Dioxide 23 mmol/L (22-30); Chloride 107 mmol/L (98-107); Glucose 102 mg/dl (70-99); Potassium 5.1 mmol/L (3.5-5.1); Sodium 138 mmol/L (135-145); eGFR 36.64
== END ==
LOC: OLABN 10:06
PROVIDERS: ATTENDING PHYSICIAN Student in an Organized Health Care Education/Training Program
DX: I50.42 Chronic combined systolic (congestive) and diastolic (congestive) heart failure (principal)
CPT/HCPCS: 36415; 80048; 83880; 85025

== ENCOUNTER → 2025-04-20 09:44 | Outpatient (REF) | payer MEDICARE, OTHER, SELFPAY ==
[2025-04-20 10:26] LABS: Blood Urea Nitrogen 41 mg/dl (7-17); Calcium 8.7 mg/dl (8.4-10.2); Carbon Dioxide 24 mmol/L (22-30); Chloride 107 mmol/L (98-107); Glucose 84 mg/dl (70-99); Potassium 4.4 mmol/L (3.5-5.1); Sodium 138 mmol/L (135-145); eGFR 31.21
== END ==
LOC: OLABN 09:44
PROVIDERS: ATTENDING PHYSICIAN Student in an Organized Health Care Education/Training Program
DX: R79.89 Other specified abnormal findings of blood chemistry (principal); N18.1 Chronic kidney disease, stage 1
CPT/HCPCS: 36415; 80048; 83880

== ENCOUNTER → 2025-04-28 10:55 | Outpatient (REF) | payer MEDICARE, OTHER, SELFPAY ==
[2025-04-28 11:15] LABS: Hematocrit 29.6 % (37.0-47.0); Hemoglobin 8.7 g/dL (12.0-16.0); Mean Corp Hgb Conc. 29.4 g/dL (33.0-37.0); Mean Corpuscular Volume 79.1 fL (81.0-99.0); Platelet Count 211 10^3/uL (130-400); Red Cell Dist. Width 19.7 % (11.5-14.5)
[2025-04-28 11:31] LABS: Blood Urea Nitrogen 32 mg/dl (7-17); Calcium 8.6 mg/dl (8.4-10.2); Carbon Dioxide 28 mmol/L (22-30); Chloride 104 mmol/L (98-107); Glucose 82 mg/dl (70-99); Potassium 4.2 mmol/L (3.5-5.1); Sodium 137 mmol/L (135-145); eGFR 31.21
[2025-04-28 11:38] LABS: Urine Character Cloudy (Clear)
[2025-04-28 11:52] LABS: Urine Red Blood Cell 0-2 /HPF (0-2); Urine White Cell 70-80 /HPF (0-5)
== END ==
LOC: OLABN 10:55
PROVIDERS: ATTENDING PHYSICIAN Student in an Organized Health Care Education/Training Program
DX: I10 Essential (primary) hypertension (principal); D68.59 Other primary thrombophilia; R35.0 Frequency of micturition
CPT/HCPCS: 36415; 80048; 81003; 81015; 85027; 87086

== ENCOUNTER → 2025-04-30 08:10 | Outpatient (REF) | payer MEDICARE, OTHER, SELFPAY ==
[2025-04-30 10:01] LABS: Urine Character Clear (Clear)
[2025-04-30 10:50] LABS: Urine Squamous Cell 16-20 /LPF (Few)
[2025-04-30 10:51] LABS: Urine White Cell 30-40 /HPF (0-5)
== END ==
LOC: OLAB 08:10
PROVIDERS: ATTENDING PHYSICIAN Student in an Organized Health Care Education/Training Program
DX: R35.0 Frequency of micturition (principal)
CPT/HCPCS: 81003; 81015; 87086

== ENCOUNTER → 2025-05-04 10:28 | Outpatient (REF) | payer MEDICARE, OTHER, SELFPAY ==
[2025-05-04 11:55] LABS: Blood Urea Nitrogen 31 mg/dl (7-17); Calcium 8.4 mg/dl (8.4-10.2); Carbon Dioxide 25 mmol/L (22-30); Chloride 104 mmol/L (98-107); Glucose 83 mg/dl (70-99); Potassium 4.4 mmol/L (3.5-5.1); Sodium 135 mmol/L (135-145); eGFR 33.73
[2025-05-04 12:57] LABS: Glycohemoglobin (HgbA1c) 5.7 % (4.0-5.6)
== END ==
LOC: OLABN 10:28
PROVIDERS: ATTENDING PHYSICIAN Student in an Organized Health Care Education/Training Program
DX: I10 Essential (primary) hypertension (principal); R73.01 Impaired fasting glucose
CPT/HCPCS: 36415; 80048; 83036

== ENCOUNTER → 2025-06-28 10:09 | Outpatient (REF) | payer MEDICARE, OTHER, SELFPAY ==
[2025-06-28 13:43] LABS: Urine Character Slightly Cloudy (Clear)
[2025-06-28 14:14] LABS: Urine Squamous Cell 0-2 /LPF (Few)
[2025-06-28 14:15] LABS: Urine White Cell 30-40 /HPF (0-5)
== END ==
LOC: OLABN 10:09
PROVIDERS: ATTENDING PHYSICIAN Student in an Organized Health Care Education/Training Program
DX: R30.0 Dysuria (principal)
CPT/HCPCS: 81003; 81015; 87086

== ENCOUNTER → 2025-06-30 08:00 | Outpatient (REF) | payer MEDICARE, OTHER, SELFPAY ==
[2025-06-30 10:13] LABS: Blood Urea Nitrogen 47 mg/dl (7-17); Calcium 8.6 mg/dl (8.4-10.2); Carbon Dioxide 25 mmol/L (22-30); Chloride 98 mmol/L (98-107); Glucose 93 mg/dl (70-99); Potassium 4.8 mmol/L (3.5-5.1); Sodium 130 mmol/L (135-145); eGFR 29.02
[2025-06-30 10:25] LABS: Hematocrit 31.1 % (37.0-47.0); Hemoglobin 8.9 g/dL (12.0-16.0); Mean Corp Hgb Conc. 28.6 g/dL (33.0-37.0); Mean Corpuscular Volume 76.6 fL (81.0-99.0); Nucleated Red Blood Cells % 0.2 %; Platelet Count 325 10^3/uL (130-400); Red Cell Dist. Width 20.3 % (11.5-14.5)
== END ==
LOC: OLABN 08:00
PROVIDERS: ATTENDING PHYSICIAN Student in an Organized Health Care Education/Training Program
DX: I10 Essential (primary) hypertension (principal)
CPT/HCPCS: 36415; 80048; 85025

== ENCOUNTER → 2025-06-30 09:20 | Outpatient (REF) | payer MEDICARE, OTHER, SELFPAY ==
[2025-06-30 11:24] LABS: Urine Character Clear (Clear)
[2025-06-30 11:56] LABS: Urine Squamous Cell 0-2 /LPF (Few); Urine White Cell 70-80 /HPF (0-5)
== END ==
LOC: OLABN 09:20
PROVIDERS: ATTENDING PHYSICIAN Student in an Organized Health Care Education/Training Program
DX: R35.0 Frequency of micturition (principal)
CPT/HCPCS: 81003; 81015; 87086

== ENCOUNTER → 2025-07-04 13:06 | Outpatient (REF) | payer MEDICARE, OTHER, SELFPAY ==
[2025-07-04 13:59] LABS: Blood Urea Nitrogen 44 mg/dl (7-17); Calcium 8.3 mg/dl (8.4-10.2); Carbon Dioxide 26 mmol/L (22-30); Chloride 100 mmol/L (98-107); Glucose 84 mg/dl (70-99); Potassium 5.2 mmol/L (3.5-5.1); Sodium 133 mmol/L (135-145); eGFR 29.02
== END ==
LOC: OLABN 13:06
PROVIDERS: ATTENDING PHYSICIAN Student in an Organized Health Care Education/Training Program
DX: I10 Essential (primary) hypertension (principal)
CPT/HCPCS: 36415; 80048